=== PATIENT | male | born 1965 | race Caucasian/White ===

== ENCOUNTER 2022-01-23 17:45 | Observation (INO) | payer OTHER, SELFPAY ==
[2022-01-23] VITALS (15 sets, daily range): BP systolic 167–199; BP diastolic 97–136; PULSE 113–137; RESP 15–28; TEMP 36.8–38; O2SAT 92–99; BMI 32.5; BMI 35.0
--- NOTE | 2022-01-23 18:18 | CRLHL7_ITS ---
For Patients: As a result of the 21st Century Cures Act, medical imaging exams and procedure reports are released immediately into your electronic medical record. You may view this report before your referring provider. If you have questions, please contact your health care provider. HISTORY: Shortness of breath. Recent COVID-19. TECHNIQUE: Intravenous contrast enhanced CT of the chest, abdomen and pelvis. 95 mL of Isovue-370 intravenous contrast administered. COMPARISON: CT abdomen pelvis from 10/25/2020. FINDINGS: Chest: There is less than optimal opacification of the pulmonary arterial circulation which limits assessment for pulmonary embolism. Segmental and subsegmental pulmonary arterial branches of the lower lobes are difficult to evaluate as a result. There is no moderate or large pulmonary embolism. No thoracic aortic aneurysm or dissection. Coronary calcifications are present. No significant pericardial effusion. No technically enlarged mediastinal or hilar lymph nodes. No enlarged axillary lymph nodes. - No change in elevation of right hemidiaphragm with associated atelectasis at the right lung base. There is no acute lung infiltrate. No pleural effusion or pneumothorax. - Degenerative changes of the thoracic spine. No acute thoracic fracture. Abdomen and pelvis: There is diffuse fatty infiltration of the liver. No focal liver lesion. No biliary ductal dilatation. Gallbladder mildly distended. The spleen size is within normal limits. The adrenal glands normal. There are peripancreatic inflammatory changes associated with the pancreatic head likely indicating pancreatitis changes. This may be correlated with pancreatic enzymes. There is no pseudocyst or definite pancreatic necrosis. The peripancreatic vasculature remains patent. Symmetric nephrograms. There is a cyst exophytic off the anterior aspect of left kidney. No hydronephrosis. No obstructive urinary calculus. Prostate is mildly enlarged. - No small bowel obstruction. No appendicitis. Colonic diverticulosis without diverticulitis. - No abdominal aortic aneurysm. - Degenerative changes of the hips and sacroiliac joints. Degenerative changes within the lumbar spine. No acute fractures. IMPRESSION: 1. Assessment for pulmonary embolism limited by non-optimal opacification of the pulmonary arterial circulation. No moderate or large pulmonary embolism. 2. Chronically elevated right hemidiaphragm with right basilar atelectasis. 3. No acute lung infiltrate. 4. Peripancreatic inflammatory changes associated with the head of the pancreas likely reflecting pancreatitis changes. This may be correlated with pancreatic enzymes. No pseudocyst or pancreatic necrosis. 5. Fatty infiltration of the liver. Dictated by Jorge A Em MD @ 01/23/2022 7:42:41 PM Please note that all CT scans at this facility use dose modulation, iterative reconstruction, and/or weight-based dosing when appropriate to reduce radiation dose to as low as reasonably achievable. Dictated by: Jorge A Em MD @ 01/23/2022 19:42:47 (Electronically Signed)
--- NOTE | 2022-01-23 18:20 | ED_ITS ---
HPI - General Adult General Time Seen by Provider: 18:20 Date Seen: 01/23/22 Chief complaint: Abdominal Pain Stated complaint: Blood pressure, heart rate up, short of breath Time Seen by Provider: 01/23/22 17:53 Source: patient, RN notes reviewed and old records reviewed Mode of arrival: ambulatory Limitations: no limitations History of Present Illness HPI narrative: 48-year-old male with history of high blood pressure, had COVID about 2 weeks ago, comes in today with fast heart rate, shortness of breath, upper abdominal pain. Symptoms have been going on for about 2 days. He has not been eating or drinking for the last couple of days because of his nausea. Abdominal pain is constant, worse with moving, does not radiate into the chest or back. No dysuria or hematuria. Soft stools but no frequency or diarrhea. No blood in the stools. Denies fevers, has had fatigue. Some body aches. No chills. Has not been taking anything for his symptoms. No prior surgeries. Does admit to some shortness of breath but no chest pain and no pain with breathing. Slight cough. Related Data Home Medications Medication Instructions Recorded Confirmed chlorthalidone 25 mg tablet mg 01/23/22 losartan 100 mg tablet mg 01/23/22 tamsulosin 0.4 mg capsule mg PO 01/23/22 Previous Rx's Medication Instructions Recorded alprazolam 0.5 mg tablet 0.5 mg PO BID PRN anxiety #42 tabs 12/12/21 Allergies Allergy/AdvReac Type Severity Reaction Status Date / Time No Known Drug Allergies Allergy Verified 01/23/22 18:12 Review of Systems Status of ROS: Reports: 10 or more systems reviewed and unremarkable except as noted in History and below [facility] Medical History (Updated 01/23/22 @ 19:03 by Delvis Corrales MD) Anxiety Social History Smoking Status: Former smoker Do you use any of these nicotine containing products: None Second hand tobacco smoke exposure: No How often do you have a drink containing alcohol: 2-3 times a week How many standard drinks containing alcohol do you have on a typical day: 7 to 9 How often do you have six or more drinks on one occasion: Weekly AUDIT-C Alcohol total score: 9 Non-prescribed substance use: denies use Exam Narrative: Exam Narrative: General: Well-developed and well-nourished, no acute distress Head: Atraumatic and normocephalic Eyes: Pupils are equal reactive, extraocular motions intact, conjunctiva clear ENT: External nose and ears are normal, posterior pharynx without erythema or exudate Neck: No midline cervical tenderness, full spontaneous range of motion the neck, trachea midline, no adenopathy Heart: Tachycardic but regular no murmurs or thrills Lungs: Clear to auscultation bilaterally without wheezes or crackles Abdomen: Soft, mild upper and left-sided tenderness, nondistended with active bowel sounds Musculoskeletal: No tenderness, deformity, or edema Neurologic: Awake, alert, and oriented x3, no gross focal neurologic deficits, cranial nerves intact as tested Psych: Mood and affect are appropriate Skin: No rashes Const: Vital Signs, click to edit/add: Vital Signs - 24 hr 01/23/22 18:09 01/23/22 18:51 01/23/22 18:05 Temperature 99.9 F H 100.4 F H Pulse Rate [Right Pulse Oximeter] 128 H 129 H Respiratory Rate 26 H 22 Blood Pressure [Ri ght Upper Arm] 174/121 H 174/121 H Pulse Oximetry 94 94 Oxygen Delivery Me thod Room Air Room Air 01/23/22 18:30 01/23/22 19:00 01/23/22 19:40 Temperature Pulse Rate [Right Pulse Oximeter] 128 H 128 H 137 H Respiratory Rate 27 H 18 23 Blood Pressure [Ri ght Upper Arm] 199/126 H 190/136 H 180/129 H Pulse Oximetry 95 95 95 Oxygen Delivery Me thod Room Air Room Air Room Air Course Course Hospital Course: Patient seen and examined, prior records are reviewed. Differential diagnosis includes but not limited to pneumonia, pulmonary embolism, dysrhythmia, electrolyte disturbance, cholecystitis, hepatitis, colitis, diverticulitis, deh ydration, acute coronary syndrome. Patient with fast heart rate and upper abdominal discomfort for the last couple of days along with fatigue, poor oral intake. Recent COVID. On exam here, patient is tachycardic, no fever but temperature is little bit elevated, oxygen saturation 94% on room air. Mild upper abdominal tenderness. Given broad differential and abnormal vital signs, labs and CT scan of the chest for pulmonary embolism or pneumonia, as well as CT scan of the abdomen for intra-abdominal infection or pathology ordered. Acute coronary syndrome less likely but EKG and troponin are ordered. IV fluids are initiated along with Zofran and Tylenol. Reevaluation(s) Reevaluation #1: Labs demonstrate normal white blood cell count, slightly elevated lactate which likely secondary to dehydration. Additionally, AST nail tear slightly elevated but bilirubin is normal. Lipase is significantly elevated. CT scan of the chest personally reviewed and interpreted by me does not demonstrate any acute intrathoracic findings, CT scan of the abdomen and pelvis appears to demonstrate findings consistent with acute pancreatitis. Troponin is negative, urinalysis is pending. Plan to admit patient for further evaluation treatment. Time: 19:01 Reevaluation #2: Radiology interpretation agrees with my initial interpretation of acute pancreatitis. Care was discussed with Dr. Colón, hospitalist for admission. Time: 20:01 Vital Signs Vital signs: Initial Vital Signs Pulse Rate 129 H 01/23/22 18:05 Respiratory Rate 22 01/23/22 18:05 Blood Pressure 174/121 H 01/23/22 18:05 Blood Pressure Mean 138 01/23/22 18:05 Pulse Oximetry 94 01/23/22 18:05 Oxygen Delivery Method 01/23/22 18:05 Vital Signs Pulse Rate 129 H 01/23/22 18:05 Respiratory Rate 22 01/23/22 18:05 Blood Pressure 174/121 H 01/23/22 18:05 Pulse Oximetry 94 01/23/22 18:05 Oxygen Delivery Method 01/23/22 18:05 Temperature 100.4 F H 01/23/22 18:51 Pulse Rate 137 H 01/23/22 19:40 Respiratory Rate 23 01/23/22 19:40 Blood Pressure 180/129 H 01/23/22 19:40 Pulse Oximetry 95 01/23/22 19:40 Oxygen Delivery Method 01/23/22 19:40 Medical Decision Making Medical Records Medical records reviewed: Yes I reviewed the patient's medical records Lab Data Lab results reviewed: Yes I reviewed the patient's lab results Labs: Lab Results 01/23/22 01/23/22 01/23/22 Range/Units 18:15 18:15 18:15 WBC 9.34 (4.50-11.00) K/uL RBC 4.89 (4.30-5.90) m/uL Hgb 16.3 (13.5-17.5) gm/dL Hct 47.0 (37.0-53.0) % MCV 96 (80-100) fL MCH 33 (26-34) pg MCHC 35 (32-36) gm/dL RDW Coeff of Bhupendra 13.1 (11.5-15.5) % Plt Count 190 (140-440) K/uL Neut % (Auto) 72.6 H (42.0-72.0) % Lymph % (Auto) 11.6 L (20-44) % Putnam % (Auto) 14.5 H (0.0-11.0) % Eos % (Auto) 0.9 (0.0-7.0) % Baso % (Auto) 0.3 (0.0-3.0) % Neut # (Auto) 6.80 (1.7-7.0) K/uL Lymph # (Auto) 1.10 (0.90-2.90) K/uL Putnam # (Auto) 1.40 H (0.00-0.90) K/UL Eos # (Auto) 0.08 (0.00-0.50) K/uL Baso # (Auto) 0.03 (0.00-0.30) K/uL Abs Immat Gran (auto) 0.01 (0.00-0.30) K/uL Sodium 137 (135-149) mmol/L Potassium 3.7 (3.6-5.1) mmol/L Chloride 98 (96-114) mmol/L Carbon Dioxide 25 (20-32) mmol/L BUN 8 (7-30) mg/dL Creatinine 0.8 (0.5-1.5) mg/dL Estimated Creat Clear 110.47 Estimated GFR 103 ml/min Glucose 166 H (60-115) mg/dL Lactate 2.0 H (0.5-1.9) mmol/L Calcium 9.6 (8.4-10.6) mg/dL Total Bilirubin (0.1-1.5) mg/dL Direct Bilirubin (0.0-0.5) mg/dL AST (12-35) U/L ALT (4-50) U/L Alkaline Phosphatase (40-150) U/L NT-Pro-B Natriuret Pep (0-125) PG/mL Total Protein (6.0-8.3) g/dL Albumin (3.3-5.0) g/dL Lipase (23-300) U/L Urine Color (Yellow) Urine Appearance (Clear) Urine pH (5.0-8.5) Ur Specific Edgerton (1.000-1.030) Urine Protein (Negative) Urine Glucose (UA) (Negative) Urine Ketones (Negative) Urine Blood (Negative) Urine Nitrite (Negative) Urine Bilirubin (Negative) Urine Urobilinogen (0.2-1.0) Ur Leukocyte Esterase (Negative) SARS-CoV-2 Ag (Rapid) (Negative) POC Troponin I (0.01-0.04) ng/ml 01/23/22 01/23/22 01/23/22 Range/Units 18:15 18:15 18:24 WBC (4.50-11.00) K/uL RBC (4.30-5.90) m/uL Hgb (13.5-17.5) gm/dL Hct (37.0-53.0) % MCV (80-100) fL MCH (26-34) pg MCHC (32-36) gm/dL RDW Coeff of Bhupendra (11.5-15.5) % Plt Count (140-440) K/uL Neut % (Auto) (42.0-72.0) % Lymph % (Auto) (20-44) % Putnam % (Auto) (0.0-11.0) % Eos % (Auto) (0.0-7.0) % Baso % (Auto) (0.0-3.0) % Neut # (Auto) (1.7-7.0) K/uL Lymph # (Auto) (0.90-2.90) K/uL Putnam # (Auto) (0.00-0.90) K/UL Eos # (Auto) (0.00-0.50) K/uL Baso # (Auto) (0.00-0.30) K/uL Abs Immat Gran (auto) (0.00-0.30) K/uL Sodium (135-149) mmol/L Potassium (3.6-5.1) mmol/L Chloride (96-114) mmol/L Carbon Dioxide (20-32) mmol/L BUN (7-30) mg/dL Creatinine (0.5-1.5) mg/dL Estimated Creat Clear Estimated GFR ml/min Glucose (60-115) mg/dL Lactate (0.5-1.9) mmol/L Calcium (8.4-10.6) mg/dL Total Bilirubin 1.3 (0.1-1.5) mg/dL Direct Bilirubin 0.4 (0.0-0.5) mg/dL AST 121 H (12-35) U/L ALT 165 H (4-50) U/L Alkaline Phosphatase 89 (40-150) U/L NT-Pro-B Natriuret Pep 55 (0-125) PG/mL Total Protein 8.8 H (6.0-8.3) g/dL Albumin 4.5 (3.3-5.0) g/dL Lipase 1109 H (23-300) U/L Urine Color (Yellow) Urine Appearance (Clear) Urine pH (5.0-8.5) Ur Specific Edg[place] (1.000-1.030) Urine Protein (Negative) Urine Glucose (UA) (Negative) Urine Ketones (Negative) Urine Blood (Negative) Urine Nitrite (Negative) Urine Bilirubin (Negative) Urine Urobilinogen (0.2-1.0) Ur Leukocyte Esterase (Negative) SARS-CoV-2 Ag (Rapid) negative (Negative) POC Troponin I 0.01 (0.01-0.04) ng/ml 01/23/22 Range/Units 19:46 WBC (4.50-11.00) K/uL RBC (4.30-5.90) m/uL Hgb (13.5-17.5) gm/dL Hct (37.0-53.0) % MCV (80-100) fL MCH (26-34) pg MCHC (32-36) gm/dL RDW Coeff of Bhuepndra (11.5-15.5) % Plt Count (140-440) K/uL Neut % (Auto) (42.0-72.0) % Lymph % (Auto) (20-44) % Putnam % (Auto) (0.0-11.0) % Eos % (Auto) (0.0-7.0) % Baso % (Auto) (0.0-3.0) % Neut # (Auto) (1.7-7.0) K/uL Lymph # (Auto) (0.90-2.90) K/uL Putnam # (Auto) (0.00-0.90) K/UL Eos # (Auto) (0.00-0.50) K/uL Baso # (Auto) (0.00-0.30) K/uL Abs Immat Gran (auto) (0.00-0.30) K/uL Sodium (135-149) mmol/L Potassium (3.6-5.1) mmol/L Chloride (96-114) mmol/L Carbon Dioxide (20-32) mmol/L BUN (7-30) mg/dL Creatinine (0.5-1.5) mg/dL Estimated Creat Clear Estimated GFR ml/min Glucose (60-115) mg/dL Lactate (0.5-1.9) mmol/L Calcium (8.4-10.6) mg/dL Total Bilirubin (0.1-1.5) mg/dL Direct Bilirubin (0.0-0.5) mg/dL AST (12-35) U/L ALT (4-50) U/L Alkaline Phosphatase (40-150) U/L NT-Pro-B Natriuret Pep (0-125) PG/mL Total Protein (6.0-8.3) g/dL Albumin (3.3-5.0) g/dL Lipase (23-300) U/L Urine Color Yellow (Yellow) Urine Appearance Clear (Clear) Urine pH 8.5 (5.0-8.5) Ur Specific Edgerton 1.015 (1.000-1.030) Urine Protein Negative (Negative) Urine Glucose (UA) Negative (Negative) Urine Ketones Negative (Negative) Urine Blood Negative (Negative) Urine Nitrite Negative (Negative) Urine Bilirubin Negative (Negative) Urine Urobilinogen 0.2 (0.2-1.0) Ur Leukocyte Esterase Negative (Negative) SARS-CoV-2 Ag (Rapid) (Negative) POC Troponin I (0.01-0.04) ng/ml Imaging Data CT Chest/Ab/Pelvis: Attestation: I have reviewed the pertinent imaging results. My impression: CT scan of the chest is negative, CT scan of the abdomen consistent with acute appendicitis, no other acute findings Radiologist's impression: IMPRESSION: 1. Assessment for pulmonary embolism limited by non-optimal opacification of the pulmonary arterial circulation. No moderate or large pulmonary embolism. 2. Chronically elevated right hemidiaphragm with right basilar atelectasis. 3. No acute lung infiltrate. 4. Peripancreatic inflammatory changes associated with the head of the pancreas likely reflecting pancreatitis changes. This may be correlated with pancreatic enzymes. No pseudocyst or pancreatic necrosis. 5. Fatty infiltration of the liver. ECG Data Attestation: I personally reviewed and interpreted this ECG as follows: Prior ECG tracings: not available for review Interpretation: Performed at 6:01 p.m. demonstrates sinus tachycardia rate 130, no acute ST elevations or depressions, normal intervals, normal axis, QTC 467, IN 140. No prior for comparison. Discharge Plan Discharge Clinical Impression: Pancreatitis Patient Disposition: Admitted As Inpatient
[2022-01-23 18:27] LABS: Troponin, Point-of-Care* 0.01 ng/ml (0.01-0.04)
--- OUTSIDE RECORDS SUMMARY | 2022-01-23 18:27 | XMS_ITS ---
:1965 Author Care Team Providers Name Role Phone Ciro Pitts Primary Care Provider Unavailable Allergies Code Code System Name Reaction Severity Status Onset NKDA ? Medications Name Status Start Date Stop Date ? ? azithromycin 250 mg tablet Completed ? 11/01 ibuprofen 800 mg tablet Active ? Not avai lable TAKE 1 TABLET BY MOUTH TWICE DAILY NEEDED FOR PAIN losartan 100 mg tablet Active ? Not avail able oxycodone 5 mg tablet Completed ? 11/25/2020 TAKE 1 TABLET BY MOUTH EVERY 4 TO 6 HOURS NEEDED oxycodone-acetaminophen 5 mg-325 mg tablet Completed ? 11/01/2020 tamsulosin 0.4 mg capsule Active ? Not av ailable tobramycin 0.3 %-dexamethasone 0.1 % eye drops,suspension Comple philomena ? 11/25/2020 SHAKE LIQUID AND INSTILL 1 DROP IN LEFT EYE FOUR TIMES DAILY FO R 1 WEEK Problems None recorded. Procedures Date Name Performed by ? 11/25/2020 XR, Kidney + Ureter + Bladder Informatio n not available Results Lab Results Date Name Specimen Result Interpretation Description Value Range Status Address ? 11/01/2020 Urinalysis, Dipstick ? No observation recor ded. ? Urinalysis, Dipstick ? Color-Status Yellow ? Clarity-Status Clear ? pH-Status 6.0 ? Blood-Status Small ? ? Past Encounters 11/25/2020 Kidney Stone Ciro Pitts MD: [id number], [address], [place] [address], Ph. 11/01/2020 Kidney Stone Ciro Pitts MD: [address] [place] [address], Ph. Social History Tobacco Smoking Status Former Smoker Vaccine List None recorded. Plan of Care Reminders Provider Appointments None recorded. ? ? Lab None recorded. ? ? Referral None recorded. ? ? Procedures None recorded. ? ? Surgeries None recorded. ? ? Imaging None recorded. ? ? Vitals 11/25/2020 10:20AM ESTABLISHED 10 Height Weight BMI 6 ft 230 lbs 31.2 kg/m2 11/01/2020 03:40PM NEW PATIENT 20 Height Weight BMI 6 ft 230 lbs 31.2 kg/m2
--- OUTSIDE RECORDS SUMMARY | 2022-01-23 18:27 | XMS_ITS | Clinical Summary ---
:1965 Author Organization [facility] Address [place] [address] Care Team Providers Name Role Phone Ketty Reddy MD Primary Care Provider [phone] Allergies No known active allergies Medications Medication Sig Dispensed Refills Start Date End Date Status traMADol (ULTRAM) 50 Take 50 mg by 0 Active mg tablet mouth every 6 hours if needed for Pain. tamsulosin (FLOMAX) Take 0.4 mg by 0 Active 0.4 mg capsule mouth once daily after a meal. ibuprofen (ADVIL; Take 800 mg by 0 Active MOTRIN) 800 mg tablet mouth 2 times daily if needed. 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 OPERATOR Pulse 60 06/07/2014 9:39 AM VIBRATING SCREED OPERATOR Temperature 36.6 ??C (97.8 ??F) 11/28/2016 11:00 AM CDT Respiratory Rate 16 06/07/2014 9:39 AM VIBRATING SCREED OPERATOR Oxygen Saturation 98% 06/07/2014 9:39 AM VIBRATING SCREED OPERATOR Inhaled Oxygen Concentration - - Weight 103.3 kg (227 lb 12.8 oz) 11/28/2016 11:00 AM CDT Height 182.9 cm (6') 06/07/2014 7:55 AM VIBRATING SCREED OPERATOR Body Mass Index 30.9 06/07/2014 7:55 AM VIBRATING SCREED OPERATOR Plan of Treatment Health Maintenance Due Date Last Done Comments COVID-19 vaccine series (#1) 01/07/1964 Tdap 07/06/1974 Depression screening for age 12+ 1975 BMI (ht and wt on same day) for age 18+ 07/06/1981 Hepatitis C screening for age 18-79 07/06/1981 Tetanus booster 1983 Colonoscopy through age 75 07/06/2008 Lipids for age 45-75 07/06/2008 Zoster (shingles) series for age 50+ (1 of 2) 07/06/2013 Influenza for age 50-64 01/04/2022 Results Not on filefrom Last 3 Months Insurance Payer Benefit Plan / Subscriber ID Effective Dates Phone Addre ss Type Group WC [employer] [id number] 2016-Presen [employer] [address] [place] [address] MEDICA MEDICA CHOICE [id number] 2020-Present [address] [address] [place] [address] Advance Directives Latest Code Status on File Code Status Date Activated Date Inactivated Comments Full Code 06/07/2014 7:34 AM 06/07/2014 11:43 AM Care Teams Bookstore Manager Relationship Specialty Start Date End Date Ketty Reddy, PCP - General Family Practice 06/07
[2022-01-23 18:29] LABS: Basophils Absolute Auto 0.03 K/uL (0.00-0.30); Basophils Percent Auto 0.3 % (0.0-3.0); Eosinophils Absolute Auto 0.08 K/uL (0.00-0.50); Eosinophils Percent Auto 0.9 % (0.0-7.0); Hemoglobin* 16.3 gm/dL (13.5-17.5); Immature Granulocytes Abs Auto 0.01 K/uL (0.00-0.30); Lymphocytes Percent Auto 11.6 % (20-44); Mean Corpuscular HGB Conc 35 gm/dL (32-36); Mean Corpuscular Hemoglobin 33 pg (26-34); Mean Corpuscular Volume 96 fL (80-100); Monocytes Percent Auto 14.5 % (0.0-11.0); Neutrophils Percent Auto 72.6 % (42.0-72.0); Platelet Count* 190 K/uL (140-440); RDW Coefficient of Variation % 13.1 % (11.5-15.5); Red Blood Count 4.89 m/uL (4.30-5.90); White Blood Count* 9.34 K/uL (4.50-11.00)
[2022-01-23 18:31] LABS: Slide Review Reflex No
[2022-01-23 18:41] LABS: Chloride* 98 mmol/L (96-114); Potassium* 3.7 mmol/L (3.6-5.1); Sodium* 137 mmol/L (135-149)
[2022-01-23 18:43] LABS: Albumin* 4.5 g/dL (3.3-5.0)
[2022-01-23 18:44] LABS: Blood Urea Nitrogen* 8 mg/dL (7-30); Carbon Dioxide* 25 mmol/L (20-32); Creatinine* 0.8 mg/dL (0.5-1.5); Est. Creatinine Clearance* 110.47; Estimated Glomerular Filt Rate 103 ml/min
[2022-01-23 18:45] LABS: Calcium* 9.6 mg/dL (8.4-10.6); Glucose* 166 mg/dL (60-115)
[2022-01-23 18:46] LABS: Alanine Aminotransferase* 165 U/L (4-50); Alkaline Phosphatase* 89 U/L (40-150); Aspartate Amino Transferase* 121 U/L (12-35); Bilirubin Direct* 0.4 mg/dL (0.0-0.5); Bilirubin Total* 1.3 mg/dL (0.1-1.5); Lipase* 1109 U/L (23-300); Total Protein* 8.8 g/dL (6.0-8.3)
[2022-01-23] MEDS: ACETAMINOPHEN 500 MG TABLET 1000 MG PO (18:51)
[2022-01-23] MEDS: ONDANSETRON 2 MG/ML inj 4 MG IVP ×3 (18:52→22:59)
[2022-01-23] MEDS: 0.9 % SODIUM CHLORIDE 1000 ml 1,000 ML IV ×2 (18:52→20:10)
[2022-01-23 19:01] LABS: SARS Antigen* negative (Negative)
[2022-01-23 19:53] LABS: NT Pro B Type NatriureticPept* 55 PG/mL (0-125)
[2022-01-23 19:56] LABS: Appearance Urine Clear (Clear); Bilirubin Urine Negative (Negative); Blood Urine Negative (Negative); Color Urine Yellow (Yellow); Glucose Urine Negative (Negative); Ketones Urine Negative (Negative); Leukocyte Esterase Urine Negative (Negative); Nitrite Urine Negative (Negative); Protein Urine Negative (Negative); Specific Gravity Urine 1.015 (1.000-1.030); Urobilinogen Urine 0.2 (0.2-1.0); pH Urine 8.5 (5.0-8.5)
[2022-01-23 20:06] LABS: RBC Urine 0-2 (0-2); WBC Urine 0-2 (0-5)
[2022-01-23] MEDS: HYDROmorphone 0.5 mg/0.5 ml inj IVP (20:10)
--- NOTE | 2022-01-23 22:08 | P.IMHP_ITS ---
Hospitalist- H&P: HPI History of Present Illness Date Seen: 01/23/22 Chief complaint: Blood pressure, heart rate up, short of breath Narrative: Dov Alexander is a 56 year old male who has not felt well for the past 2 days. He has felt like his heart has been racing and he has been having increasing diffuse abd pain. Pt has really not been eating. He has no history of gallbladder disease and drinks approximately a 6 pack of beer every week or two. None really recently. No history of pancreatitis previously but laboratory studies show a Lipase of 1109 with a lactate of 2.0. Hgb of 16.3, WBC of 9.34. ALT is 121 ALT of 165. Total Bilirubin of 1.3. Pts CT of abd and pelvis showed evidence of Pancreatitis without pseudocyst as well as fatty liver. Pt had COVID 2 weeks ago but tests negative for COVID 19 now. Troponin is negative. Pt given hydration and pain control and is subsequently admitted. Review of Systems Status of ROS: Reports: 10 or more systems reviewed and unremarkable except as noted in History and below PFSH [facility] Medical History Anxiety BPH (benign prostatic hyperplasia) COVID-19 Hypertension Kidney stones Social History Smoking Status: Former smoker Do you use any of these nicotine containing products: None Second hand tobacco smoke exposure: No How often do you have a drink containing alcohol: 2-3 times a week How many standard drinks containing alcohol do you have on a typical day: 7 to 9 How often do you have six or more drinks on one occasion: Weekly AUDIT-C Alcohol total score: 9 Non-prescribed substance use: denies use Meds Home Medications and Allergies Home Medications Medication Instructions Recorded Confirmed Type chlorthalidone 25 mg tablet mg 01/23/22 History losartan 100 mg tablet mg 01/23/22 History tamsulosin 0.4 mg capsule mg PO 01/23/22 History Allergies Allergy/AdvReac Type Severity Reaction Status Date / Time No Known Drug Allergies Allergy Verified 01/23/22 18:12 Exam Narrative: Exam Narrative: EXAM GENERAL: Patient appears mildly uncomfortable EYES: No scleral icterus. THYROID: no thyroid nodules or thyromegaly. LYMPH: No supraclavicular or cervical lymphadenopathy. SKIN: Visible skin seen during exam normal or with benign process only. EXT: No dependent lower extremity pedal edema. HEART: Regular rate and rhythm with no murmurs, rubs, or gallops. LUNGS: Clear to auscultation bilaterally with no crackles or wheezes. ABD: Hypoactive bowel sounds mildly tender to palpation no obvious fluid wave. PSYCH: Good eye contact, speech is not pressured. Neurologic cranial nerves 2-12 grossly intact no focal defects. Const: Vital Signs, click to edit/add: Vital Signs - 24 hr 01/23/22 18:09 01/23/22 18:51 01/23/22 18:05 Temperature 99.9 F H 100.4 F H Pulse Rate [Right Pulse Oximeter] 128 H 129 H Respiratory Rate 26 H 22 Blood Pressure [Ri ght Upper Arm] 174/121 H 174/121 H Pulse Oximetry 94 94 Oxygen Delivery Mn thod Room Air Room Air 01/23/22 18:30 01/23/22 19:00 01/23/22 19:40 Temperature Pulse Rate [Right Pulse Oximeter] 128 H 128 H 137 H Respiratory Rate 27 H 18 23 Blood Pressure [Ri ght Upper Arm] 199/126 H 190/136 H 180/129 H Pulse Oximetry 95 95 95 Oxygen Delivery Mn thod Room Air Room Air Room Air 01/23/22 20:00 01/23/22 20:43 01/23/22 21:00 Temperature 100.1 F H Pulse Rate [Right Pulse Oximeter] 131 H 116 H Respiratory Rate 15 24 Blood Pressure [Ri ght Upper Arm] 181/121 H 172/97 H Pulse Oximetry 96 94 Oxygen Delivery Mn thod Room Air Room Air 01/23/22 20:30 Temperature Pulse Rate [Right Pulse Oximeter] 115 H Respiratory Rate 28 H Blood Pressure [Ri ght Upper Arm] 181/119 H Pulse Oximetry 92 Oxygen Delivery Mn thod Room Air Hospitalist - H&P: Result Labs Labs: Short CBC 01/23/22 Range/Units 18:15 WBC 9.34 (4.50-11.00) K/uL Hgb 16.3 (13.5-17.5) gm/dL Hct 47.0 (37.0-53.0) % Plt Count 190 (140-440) K/uL BMP 01/23/22 18:15 Sodium 137 Potassium 3.7 Chloride 98 Carbon Dioxide 25 BUN 8 Creatinine 0.8 Glucose 166 H Calcium 9.6 Liver Function 01/23/22 Range/Units 18:15 Total Bilirubin 1.3 (0.1-1.5) mg/dL Direct Bilirubin 0.4 (0.0-0.5) mg/dL AST 121 H (12-35) U/L ALT 165 H (4-50) U/L Alkaline Phosphatase 89 (40-150) U/L Albumin 4.5 (3.3-5.0) g/dL Urine 01/23/22 Range/Units 19:46 Urine Color Yellow (Yellow) Urine Appearance Clear (Clear) Urine pH 8.5 (5.0-8.5) Ur Specific [place] 1.015 (1.000-1.030) Urine Protein Negative (Negative) Urine Glucose (UA) Negative (Negative) Assessment and Plan Assessment and plan (1) Pancreatitis: Status: Acute Assessment and Plan: Bowel rest. IV hydration, pain and nausea control. Repeat labs and a ultrasound of the gall bladder in the am. (2) Hypertension: Status: Chronic Assessment and Plan: Will continue outpt chlorthalidone and losartan (3) BPH (benign prostatic hyperplasia): Status: Chronic Assessment and Plan: Will continue Flomax Plan Pt wishes to be a DNR
[2022-01-23] MEDS: 0.9 % SODIUM CH + KCL 20 mEq/L 1,000 ML 125 ML IV (22:49)
[2022-01-23] MEDS: MORPHINE 4 MG/ML INJ IVP (22:49)
[2022-01-24] VITALS (8 sets, daily range): BP systolic 173–201; BP diastolic 117–128; PULSE 84–101; RESP 20; TEMP 36.9–37.1; O2SAT 92–99
[2022-01-24] MEDS: MORPHINE 4 MG/ML INJ IVP ×10 (00:15→19:01)
[2022-01-24] MEDS: ONDANSETRON 2 MG/ML inj 4 MG IVP (04:30)
--- NOTE | 2022-01-24 05:07 | PC.NURSE ---
[id number]: patient up ad zain, NPO overnight, pain and nausea meds per EMAR.
[2022-01-24 06:21] LABS: Lactate* 1.1 mmol/L (0.5-1.9)
[2022-01-24 06:31] LABS: Basophils Absolute Auto 0.03 K/uL (0.00-0.30); Basophils Percent Auto 0.3 % (0.0-3.0); Eosinophils Absolute Auto 0.17 K/uL (0.00-0.50); Eosinophils Percent Auto 1.8 % (0.0-7.0); Hematocrit 44.3 % (37.0-53.0); Immature Granulocytes Abs Auto 0.02 K/uL (0.00-0.30); Lymphocytes Percent Auto 11.5 % (20-44); Mean Corpuscular HGB Conc 34 gm/dL (32-36); Mean Corpuscular Hemoglobin 34 pg (26-34); Mean Corpuscular Volume 99 fL (80-100); Monocytes Percent Auto 15.7 % (0.0-11.0); Neutrophils Absolute Auto 6.62 K/uL (1.7-7.0); Neutrophils Percent Auto 70.5 % (42.0-72.0); Platelet Count* 177 K/uL (140-440); RDW Coefficient of Variation % 13.5 % (11.5-15.5); Red Blood Count 4.46 m/uL (4.30-5.90); White Blood Count* 9.39 K/uL (4.50-11.00)
[2022-01-24] MEDS: 0.9 % SODIUM CH + KCL 20 mEq/L 1,000 ML 125 ML IV ×3 (06:35→22:19)
[2022-01-24 06:39] LABS: Slide Review Reflex No
[2022-01-24 06:42] LABS: Albumin* 4.2 g/dL (3.3-5.0); Chloride* 100 mmol/L (96-114); Sodium* 139 mmol/L (135-149)
[2022-01-24 06:45] LABS: Alanine Aminotransferase* 134 U/L (4-50); Alkaline Phosphatase* 69 U/L (40-150); Aspartate Amino Transferase* 89 U/L (12-35); Bilirubin Total* 1.5 mg/dL (0.1-1.5); Blood Urea Nitrogen* 10 mg/dL (7-30); Carbon Dioxide* 27 mmol/L (20-32); Creatinine* 0.8 mg/dL (0.5-1.5); Est. Creatinine Clearance* 110.47; Estimated Glomerular Filt Rate 103 ml/min; Glucose* 165 mg/dL (60-115); Lipase* 545 U/L (23-300); Total Protein* 8.3 g/dL (6.0-8.3)
[2022-01-24 06:46] LABS: Calcium* 8.9 mg/dL (8.4-10.6)
[2022-01-24] MEDS: LOSARTAN POTASSIUM 50 MG TABLET 100 MG PO (09:18)
[2022-01-24] MEDS: TAMSULOSIN HCL 0.4 MG CAPSULE PO (09:19)
[2022-01-24] MEDS: METOPROLOL TARTRATE 25 MG TABLET PO ×2 (09:19→22:19)
[2022-01-24] MEDS: CHLORTHALIDONE 25 MG TABLET PO (09:19)
--- NOTE | 2022-01-24 10:15 | CRLHL7_ITS ---
For Patients: As a result of the Century Cures Act, medical imaging exams and procedure reports are released immediately into your electronic medical record. You may view this report before your referring provider. If you have questions, please contact your health care provider. Indication: Pancreatitis. Technique: Sonography of the abdomen was performed limited to the structures discussed below. Comparison: Limited portions of a CT dated October 25, 2020 Findings: The gallbladder wall thickness is normal at 2.7 millimeters. There is sludge within the gallbladder. No stones. No pericholecystic fluid. No sonographic Valentine`s sign. The common duct measures 6.4 millimeters which is normal. The liver is hyperechoic probably related to fatty infiltration. No focal mass or biliary ductal dilatation. The pancreas is obscured by bowel gas. The right kidney appears normal. The aorta and the IVC as visualized appear normal. Impression: Gallbladder sludge but no calculus and no indication of acute cholecystitis or common duct obstruction. Fatty infiltrated liver. The pancreas was not well seen due to bowel gas. Dictated by Wiliam Rutherford MD @ 01/24/2022 11:42:13 AM (Electronically Signed)
[2022-01-24] MEDS: GABAPENTIN 300 MG CAPSULE PO ×2 (10:22→22:20)
[2022-01-24] MEDS: SODIUM CHLORIDE 0.9 % (FLUSH) 10 ML SYRINGE IVF ×2 (11:50→13:26)
--- NOTE | 2022-01-24 12:02 | PM.IMPN1 ---
Progress Note: A&P Assessment and plan (1) Epigastric abdominal pain: Status: Acute Assessment and Plan: 1. This is related to the acute pancreatitis. (2) Pancreatitis, alcoholic, acute: Status: Acute Assessment and Plan: 1. This is most certainly related to his alcohol ingestion. No obvious gallstones at this time or cholecystitis. 2. Continue with IV fluids for now. 3. Will increase diet as tolerated. (3) Sludge in gallbladder: Problem details: No gallstones per ultrasound 01/24/2022 Status: Acute (4) Alcohol induced fatty liver: Status: Acute Assessment and Plan: 1. Most likely related to alcohol use. Certainly another element of this pathology could be his being overweight, although his BMI is only 35. (5) Obesity (BMI 35.0-39.9 without comorbidity): Status: Acute (6) Alcohol abuse with alcohol-induced disorder: Status: Acute Assessment and Plan: 1. Reviewed my impression with him in this regard. 2. Patient indicates simply that he will never drink again. 3. Will empirically add gabapentin 300 mg orally twice daily for alcohol withdrawal prevention prophylaxis, plus at obviously as an element of pain management as well. (7) Kidney stones: Status: Acute (8) BPH (benign prostatic hyperplasia): Status: Chronic (9) Hypertension: Status: Chronic Assessment and Plan: 1. I will add a low-dose beta-chaya to his current antihypertensive regimen at this time. (10) Anxiety: Status: Acute Plan 1. Reviewed my impressions and recommendations with the patient. 2. Answered patient's questions to satisfaction. 3. Patient has asked us to proceed as indicated. 4. Continue monitor labs periodically. Time Spent With Patient Total time spent: 40 minutes Subjective Time Seen by Provider: 08:45 Date Seen: 01/24/22 Interval history: Hospital day 2. Abdominal pain is slightly improved. Denies nausea or vomiting. Last bowel movement was yesterday. No blood loss in recent past. No trauma or injury. Denies chest pressure, heaviness, tightness, or pain. Denies dyspnea at rest, paroxysmal nocturnal dyspnea, or orthopnea. Denies syncope or near-syncope. Denies palpitations or fluttering. Tolerating increased movements today although still has the abdominal discomfort. Exam Narrative: Exam Narrative: Appears mildly uncomfortable. Appears ill. Alert, oriented to self, place, time, situation. Friendly, articulate, cooperative. Mood and affect are congruent. Independent in transfer, station, and gait. No tremors, asterixis, or ataxia. Skin is warm, dry, intact. No petechiae, cyanosis, rashes. Lungs are clear to auscultation. Heart tones with regular rhythm. Abdomen with active bowel sounds, soft, nontender. Subjective discomfort to deep palpation in the epigastrium. Extremities without edema. Const: Vital Signs, click to edit/add: Vital Signs - 24 hr 01/23/22 18:09 01/23/22 18:51 01/23/22 18:05 Temperature 99.9 F H 100.4 F H Pulse Rate [Left P ulse Oximeter] Pulse Rate [Right Pulse Oximeter] 128 H 129 H Respiratory Rate 26 H 22 Blood Pressure [Ri ght Arm] Blood Pressure [Ri ght Upper Arm] 174/121 H 174/121 H Pulse Oximetry 94 94 Oxygen Delivery [facility] [place] Room Air Room Air 01/23/22 18:30 01/23/22 19:00 01/23/22 19:40 Temperature Pulse Rate [Left P ulse Oximeter] Pulse Rate [Right Pulse Oximeter] 128 H 128 H 137 H Respiratory Rate 27 H 18 23 Blood Pressure [Ri ght Arm] Blood Pressure [Ri ght Upper Arm] 199/126 H 190/136 H 180/129 H Pulse Oximetry 95 95 95 Oxygen Delivery [facility] [place] Room Air Room Air Room Air 01/23/22 20:00 01/23/22 20:43 01/23/22 21:00 Temperature 100.1 F H Pulse Rate [Left P ulse Oximeter] Pulse Rate [Right Pulse Oximeter] 131 H 116 H Respiratory Rate 15 24 Blood Pressure [Ri ght Arm] Blood Pressure [Ri ght Upper Arm] 181/121 H 172/97 H Pulse Oximetry 96 94 Oxygen Delivery Wi thod Room Air Room Air 01/23/22 20:30 01/23/22 21:30 01/23/22 22:00 Temperature Pulse Rate [Left P ulse Oximeter] Pulse Rate [Right Pulse Oximeter] 115 H 113 H 113 H Respiratory Rate 28 H 24 24 Blood Pressure [Ri ght Arm] Blood Pressure [Ri ght Upper Arm] 181/119 H 175/126 H 179/103 H Pulse Oximetry 92 93 95 Oxygen Delivery Wi thod Room Air Room Air Room Air 01/23/22 22:32 01/23/22 22:32 01/23/22 22:32 Temperature 98.3 F 98.3 F Pulse Rate [Left P ulse Oximeter] 113 H Pulse Rate [Right Pulse Oximeter] Respiratory Rate 20 20 Blood Pressure [Ri ght Arm] 167/117 H Blood Pressure [Ri ght Upper Arm] Pulse Oximetry 99 99 Oxygen Delivery Me thod Room Air Room Air Room Air 01/23/22 22:27 01/23/22 23:08 01/24/22 02:01 Temperature 98.3 F 98.3 F 98.6 F Pulse Rate [Left P ulse Oximeter] 113 H 113 H 101 H Pulse Rate [Right Pulse Oximeter] Respiratory Rate 20 20 20 Blood Pressure [Ri ght Arm] 167/117 H 167/117 H 173/120 H Blood Pressure [Ri ght Upper Arm] Pulse Oximetry 99 99 99 Oxygen Delivery [facility] [place] Room Air Room Air Room Air 01/24/22 07:00 01/24/22 07:00 01/24/22 11:25 Temperature 98.8 F 98.5 F Pulse Rate [Left P ulse Oximeter] 89 89 94 Pulse Rate [Right Pulse Oximeter] Respiratory Rate 20 20 20 Blood Pressure [Ri ght Arm] 190/127 H 177/126 H Blood Pressure [Ri ght Upper Arm] Pulse Oximetry 94 92 Oxygen Delivery [facility] [place] Room Air Room Air 01/24/22 11:00 Temperature 98.5 F Pulse Rate [Left P ulse Oximeter] 94 Pulse Rate [Right Pulse Oximeter] Respiratory Rate 20 Blood Pressure [Ri ght Arm] 177/126 H Blood Pressure [Ri ght Upper Arm] Pulse Oximetry 92 Oxygen Delivery [facility] Room Air Labs Labs: Laboratory Results - last 24 hr 01/23/22 01/23/22 01/23/22 18:15 18:15 18:15 WBC 9.34 RBC 4.89 Hgb 16.3 Hct 47.0 MCV 96 MCH 33 MCHC 35 RDW Coeff of Bhupendra 13.1 Plt Count 190 Neut % (Auto) 72.6 H Lymph % (Auto) 11.6 L L[place] % (Auto) 14.5 H Eos % (Auto) 0.9 Baso % (Auto) 0.3 Neut # (Auto) 6.80 Lymph # (Auto) 1.10 Loving # (Auto) 1.40 H Eos # (Auto) 0.08 Baso # (Auto) 0.03 Abs Immat Gran (auto) 0.01 Sodium 137 Potassium 3.7 Chloride 98 Carbon Dioxide 25 BUN 8 Creatinine 0.8 Estimated Creat Clear 110.47 Estimated GFR 103 Glucose 166 H Lactate 2.0 H Calcium 9.6 Total Bilirubin Direct Bilirubin AST ALT Alkaline Phosphatase NT-Pro-B Natriuret Pep Total Protein Albumin Lipase Urine Color Urine Appearance Urine pH Ur Specific [place] Urine Protein Urine Glucose (UA) Urine Ketones Urine Blood Urine Nitrite Urine Bilirubin Urine Urobilinogen Ur Leukocyte Esterase Urine RBC Urine WBC Ur Squamous Epith Cells Urine Bacteria SARS-CoV-2 Ag (Rapid) POC Troponin I 01/23/22 01/23/22 01/23/22 18:15 18:15 18:24 WBC RBC Hgb Hct MCV MCH MCHC RDW Coeff of Bhupendra Plt Count Neut % (Auto) Lymph % (Auto) Loving % (Auto) Eos % (Auto) Baso % (Auto) Neut # (Auto) Lymph # (Auto) Loving # (Auto) Eos # (Auto) Baso # (Auto) Abs Immat Gran (auto) Sodium Potassium Chloride Carbon Dioxide BUN Creatinine Estimated Creat Clear Estimated GFR Glucose Lactate Calcium Total Bilirubin 1.3 Direct Bilirubin 0.4 AST 121 H ALT 165 H Alkaline Phosphatase 89 NT-Pro-B Natriuret Pep 55 Total Protein 8.8 H Albumin 4.5 Lipase 1109 H Urine Color Urine Appearance Urine pH Ur Specific [place] Urine Protein Urine Glucose (UA) Urine Ketones Urine Blood Urine Nitrite Urine Bilirubin Urine Urobilinogen Ur Leukocyte Esterase Urine RBC Urine WBC Ur Squamous Epith Cells Urine Bacteria SARS-CoV-2 Ag (Rapid) negative POC Troponin I 0.01 01/23/22 01/24/22 01/24/22 19:46 05:58 05:58 WBC 9.39 RBC 4.46 Hgb 15.0 Hct 44.3 MCV 99 MCH 34 MCHC 34 RDW Coeff of Bhupendra 13.5 Plt Count 177 Neut % (Auto) 70.5 Lymph % (Auto) 11.5 L [place] % (Auto) 15.7 H Eos % (Auto) 1.8 Baso % (Auto) 0.3 Neut # (Auto) 6.62 Lymph # (Auto) 1.10 Loving # (Auto) 1.50 H Eos # (Auto) 0.17 Baso # (Auto) 0.03 Abs Immat Gran (auto) 0.02 Sodium 139 Potassium 4.0 Chloride 100 Carbon Dioxide 27 BUN 10 Creatinine 0.8 Estimated Creat Clear 110.47 Estimated GFR 103 Glucose 165 H Lactate Calcium 8.9 Total Bilirubin 1.5 Direct Bilirubin AST 89 H ALT 134 H Alkaline Phosphatase 69 NT-Pro-B Natriuret Pep Total Protein 8.3 Albumin 4.2 Lipase 545 H Urine Color Yellow Urine Appearance Clear Urine pH 8.5 Ur Specific [place] 1.015 Urine Protein Negative Urine Glucose (UA) Negative Urine Ketones Negative Urine Blood Negative Urine Nitrite Negative Urine Bilirubin Negative Urine Urobilinogen 0.2 Ur Leukocyte Esterase Negative Urine RBC 0-2 Urine WBC 0-2 Ur Squamous Epith Cells None Urine Bacteria None SARS-CoV-2 Ag (Rapid) POC Troponin I 01/24/22 05:58 WBC RBC Hgb Hct MCV MCH MCHC RDW Coeff of Bhupendra Plt Count Neut % (Auto) Lymph % (Auto) Loving % (Auto) Eos % (Auto) Baso % (Auto) Neut # (Auto) Lymph # (Auto) Loving # (Auto) Eos # (Auto) Baso # (Auto) Abs Immat Gran (auto) Sodium Potassium Chloride Carbon Dioxide BUN Creatinine Estimated Creat Clear Estimated GFR Glucose Lactate 1.1 Calcium Total Bilirubin Direct Bilirubin AST ALT Alkaline Phosphatase NT-Pro-B Natriuret Pep Total Protein Albumin Lipase Urine Color Urine Appearance Urine pH Ur Specific [place] Urine Protein Urine Glucose (UA) Urine Ketones Urine Blood Urine Nitrite Urine Bilirubin Urine Urobilinogen Ur Leukocyte Esterase Urine RBC Urine WBC Ur Squamous Epith Cells Urine Bacteria SARS-CoV-2 Ag (Rapid) POC Troponin I Imaging US - abdomen: Radiologist's impression: Gallbladder sludge but no calculus and no indication of acute cholecystitis or common duct obstruction. Fatty infiltrated liver. The pancreas was not well seen due to bowel gas.
[2022-01-24] MEDS: PHENobarbitaL 260 MG in 0.9 % SODIUM CHLORIDE 100 ml 100 ML 208 MG IVPB (13:25)
--- NOTE | 2022-01-24 19:34 | PC.NURSE ---
BP's continued to be elevated - Dr. Colón aware. CIWAS negative at this time. pain 5-11/12 - morphine given for this. pt pleasant and cooperative with cares. NS with 20k running. Phenobarb given today, pt tolerated well. abd. US done today. pt advanced to clears and tolerating well. report given to Claudia.
[2022-01-25 03:00] VITALS: BP 180/124; PULSE 98; RESP 20; TEMP 36.6; O2SAT 99
--- NOTE | 2022-01-25 05:14 | PC.NURSE ---
[id number]: patient appears to have slept entire shift, no c/o pain. tolerating clear diet, BP remains elevated. see VS and CIWA charting
[2022-01-25] MEDS: 0.9 % SODIUM CH + KCL 20 mEq/L 1,000 ML 125 ML IV (05:58)
[2022-01-25 06:54] LABS: Hematocrit 40.5 % (37.0-53.0); Hemoglobin* 13.7 gm/dL (13.5-17.5); Mean Corpuscular HGB Conc 34 gm/dL (32-36); Mean Corpuscular Hemoglobin 34 pg (26-34); Mean Corpuscular Volume 100 fL (80-100); Platelet Count* 144 K/uL (140-440); Red Blood Count 4.06 m/uL (4.30-5.90); White Blood Count* 6.52 K/uL (4.50-11.00)
[2022-01-25 06:58] LABS: Slide Review Reflex No
[2022-01-25 07:07] LABS: Potassium* 4.2 mmol/L (3.6-5.1); Sodium* 134 mmol/L (135-149)
[2022-01-25 07:10] LABS: Lipase* 295 U/L (23-300)
[2022-01-25 07:14] LABS: C Reactive Protein* 7.6 mg/dL (0.5-1.0)
[2022-01-25 08:13] VITALS: BP 184/114; PULSE 94; RESP 18; TEMP 36.9; O2SAT 97
[2022-01-25 08:15] VITALS: RESP 18
[2022-01-25] MEDS: GABAPENTIN 300 MG CAPSULE PO (08:49)
[2022-01-25] MEDS: CHLORTHALIDONE 25 MG TABLET PO (08:49)
[2022-01-25] MEDS: LOSARTAN POTASSIUM 50 MG TABLET 100 MG PO (08:50)
[2022-01-25] MEDS: TAMSULOSIN HCL 0.4 MG CAPSULE PO (08:50)
[2022-01-25] MEDS: METOPROLOL TARTRATE 25 MG TABLET PO (08:50)
[2022-01-25 11:30] VITALS: BP 132/86; PULSE 73; RESP 18; TEMP 36.7; TEMP 36.9; O2SAT 93
[2022-01-25 12:51] VITALS: RESP 18; TEMP 36.9
[2022-01-25 13:04] VITALS: BP 142/86; PULSE 74; RESP 18; TEMP 36.9
--- NOTE | 2022-01-25 14:53 | PC.NURSE ---
Discharge. pt has been very pleasant. no pain. He is up ab zain. SL was patent and d/c intact. he is eating, drinking and voiding with no problems. went over discharge packet. went over discharge packet. went over medications, appointment, education and instructions. pt went over and sign personal belonging sheet. pt did not want a w/c ride out. he walked out with all his belongings
--- NOTE | 2022-01-25 16:30 | PM.DS1 ---
DS: Providers Provider Time Seen by Provider: 15:00 Date Seen: 01/25/22 Date of admission: 01/23/22 21:46 Primary care physician: Jay Ríos MD Admitting Clinician: Cory Colón MD Attending Physician on discharge: Ubaldo Rizzo MD Date of Discharge: 01/25/22 DS: Diagnosis Discharge Diagnosis (1) Epigastric abdominal pain: Status: Acute (2) Pancreatitis, alcoholic, acute: Status: Acute (3) Sludge in gallbladder: Status: Acute Problem details: No gallstones per ultrasound 01/24/2022 (4) Alcohol abuse with alcohol-induced disorder: Status: Acute (5) Alcohol induced fatty liver: Status: Acute (6) Obesity (BMI 35.0-39.9 without comorbidity): Status: Acute (7) BPH (benign prostatic hyperplasia): Status: Chronic (8) Hypertension: Status: Chronic (9) Anxiety: Status: Acute DS: Summary Hospital Course Hospital Course: 56-year-old man presented with a 2 day history of increasing abdominal pain and nausea. Found to have acute pancreatitis. Initially gave conflicting history of amount of alcohol consumption ranging from 1-2 6 packs of beer per week to as much as a case a week. Claims he a increased his drinking consumption substantially after the the of his . Most likely alcohol exposure is the cause of his acute pancreatitis. No obvious gallstones. Did have sludge in the gallbladder on ultrasound assessment. Treated him conservatively. Initially NPO with IV fluids plus analgesics and antiemetics as needed. Subsequently we stop the IV fluids and increased his oral intake which she tolerated. At time of discharge he is tolerating a soft diet without any difficulties. Status at Discharge Functional status at discharge: independent ambulation Overall status at discharge: patient is progressing back to baseline Time Spent with Patient Time attestation: Total time spent providing and/or coordinating discharge services: Time spent: Greater than 30 minutes Exam Narrative: Exam Narrative: Appears comfortable.? No longer appears ill as he did yesterday. Alert, oriented to self, place, time, situation. Friendly, articulate, cooperative.? Mood and affect are congruent.? Independent in transfer, station, and gait.? No tremors, asterixis, or ataxia. Skin is warm, dry, intact.? No petechiae, cyanosis, rashes. Lungs are clear to auscultation.? Heart tones with regular rhythm.? Abdomen with active bowel sounds, soft, nontender.? Extremities without edema. Independent transfer, station, and gait. No tremor, asterixis or ataxia. No focal motor neurologic deficits. Const: Vital Signs, click to edit/add: Vital Signs - 24 hr 01/24/22 19:00 01/24/22 23:00 01/24/22 23:00 Temperature 98.5 F 98.5 F Pulse Rate Pulse Rate [Left P ulse Oximeter] 98 96 98 Respiratory Rate 20 20 20 Blood Pressure Blood Pressure [Ri ght Arm] 201/128 H 189/125 H Pulse Oximetry 95 95 Oxygen Delivery Me thod Room Air Room Air 01/25/22 03:00 01/25/22 08:13 01/25/22 08:15 Temperature 98 F 98.4 F Pulse Rate Pulse Rate [Left P ulse Oximeter] 98 94 Respiratory Rate 20 18 18 Blood Pressure Blood Pressure [Ri ght Arm] 180/124 H 184/114 H Pulse Oximetry 99 97 Oxygen Delivery Me thod Room Air Room Air 01/25/22 12:51 01/25/22 11:30 01/25/22 13:04 Temperature 98.4 F 98.0 F 98.4 F Pulse Rate 74 Pulse Rate [Left P ulse Oximeter] 73 Respiratory Rate 18 18 18 Blood Pressure 142/86 H Blood Pressure [Ri ght Arm] 132/86 Pulse Oximetry 93 Oxygen Delivery Me thod Room Air 01/25/22 11:30 Temperature 98.4 F Pulse Rate Pulse Rate [Left P ulse Oximeter] 73 Respiratory Rate 18 Blood Pressure Blood Pressure [Ri ght Arm] 132/86 Pulse Oximetry 93 Oxygen Delivery Me thod Room Air Documenting provider has reviewed patient's vital signs: yes DS: Data Data Completed and Pending Labs on day of discharge: Labs from last 24 hours 01/25/22 01/25/22 06:34 06:34 WBC 6.52 RBC 4.06 L Hgb 13.7 Hct 40.5 MCV 100 MCH 34 MCHC 34 Plt Count 144 Sodium 134 L Potassium 4.2 Magnesium 2.0 C-Reactive Protein 7.6 H Lipase [address] scan - abdomen: Attestation: I have reviewed the pertinent imaging results. Radiologist's impression: 1. Assessment for pulmonary embolism limited by non-optimal opacification of the pulmonary arterial circulation. No moderate or large pulmonary embolism. 2. Chronically elevated right hemidiaphragm with right basilar atelectasis. 3. No acute lung infiltrate. 4. Peripancreatic inflammatory changes associated with the head of the pancreas likely reflecting pancreatitis changes. This may be correlated with pancreatic enzymes. No pseudocyst or pancreatic necrosis. 5. Fatty infiltration of the liver. US - abdomen: Attestation: I have reviewed the pertinent imaging results. Radiologist's impression: Gallbladder sludge but no calculus and no indication of acute cholecystitis or common duct obstruction. Fatty infiltrated liver. The pancreas was not well seen due to bowel gas. Discharge Plan Discharge Disposition: Home, Self-Care Date of Admission: 01/23/22 21:46 Attending Provider on Discharge: Ubaldo Rizzo Primary Care Provider: Jay Ríos Condition: Improved Anticipated Discharge Date/Time: 01/25/22 14:00 Discharge Medications: New metoprolol tartrate 25 mg Tablet 25 mg PO BID Qty: 60 0RF acetaminophen 325 mg tablet 650 mg PO QID PRNQty: 100 0RF oxycodone 5 mg tablet 5 mg PO Q8H PRN (Reason: pain) Qty: 10 0RF Continued chlorthalidone 25 mg tablet 25 mg PO DAILY Label Comments: TAKE 1 TABLET BY MOUTH DAILY tamsulosin 0.4 mg capsule 0.4 mg PO DAILY Label Comments: TAKE 1 CAPSULE BY MOUTH DAILY losartan 100 mg tablet 100 mg PO DAILY alprazolam 0.5 mg tablet 0.5 mg PO BID PRN (Reason: anxiety) Qty: 42 1RF Rx Instructions: Please inform patient this must last 3 weeks and no refill for 3 weeks. Discharge Orders: Discharge Order (Routine); Ordered 01/25/22 Ordered By: Ubaldo Rizzo Patient Education: Metoprolol (By mouth), Acetaminophen (By mouth), Oxycodone, Rapid Release (By mouth), Pancreatitis (GEN), Abuse of Alcohol (GEN), Alcohol Use Disorder (GEN) Activity Restrictions/Additional Instructions: 1. May resume work without restrictions on Saturday; 2. Avoid consumption of any products containing alcohol; 3. I recommend chemical dependency assessment and consideration of chemical dependency treatment if warranted, such as AA participation, outpatient or inpatient treatment; 4. Return to clinic or hospital sooner if condition worsens. Activity Level: No Restrictions and Activity as Tolerated Discharge Diet: Regular Follow Up Appointments: Jay Ríos MD [Primary Care Provider] - 01/30/22 9:45 am (Alcohol induced acute pancreatitis, hypertension, and hyponatremia follow-up) Forms: [employer] Info Instructions
== END 2022-01-25 13:40 | disposition home or self-care (01) ==
LOC: ED 19:03 → MEDSURG 01-24 09:10
PROVIDERS: Internal Medicine; Admitting Provider Internal Medicine; Emergency Provider Family Medicine; PCP Family Medicine; Visit Provider Internal Medicine
DX: K85.20 Alcohol induced acute pancreatitis without necrosis or infection (principal); K82.8 Other specified diseases of gallbladder; K70.0 Alcoholic fatty liver; F10.19 Alcohol abuse with unspecified alcohol-induced disorder; N20.0 Calculus of kidney; E66.9 Obesity, unspecified; Z68.35 Body mass index [BMI] 35.0-35.9, adult; F41.9 Anxiety disorder, unspecified; N40.0 Benign prostatic hyperplasia without lower urinary tract symptoms; I10 Essential (primary) hypertension; R53.83 Other fatigue; R10.13 Epigastric pain; R00.0 Tachycardia, unspecified; R10.819 Abdominal tenderness, unspecified site; R74.02 Elevation of levels of lactic acid dehydrogenase [LDH]; R74.01 Elevation of levels of liver transaminase levels; R74.8 Abnormal levels of other serum enzymes; Z87.891 Personal history of nicotine dependence; R10.10 Upper abdominal pain, unspecified; R05.9 Cough, unspecified; Z20.822 Contact with and (suspected) exposure to COVID-19; R11.0 Nausea
CPT/HCPCS: 36415; 71260; 74177; 76705; 80048; 80053; 80076; 81001; 83605; 83690; 83735; 83880; 84132; 84295; 84484; 85025; 85027; 86140; 87426; 93005; 96361; 96365; 96375; 96376; 99285; A9270; G0378; G0379; J1170; J2270; J2405; J2560; J7030; Q9967

== ENCOUNTER 2022-10-31 14:09 | Outpatient (CLI) | payer OTHER, SELFPAY ==
--- OUTSIDE RECORDS SUMMARY | 2022-10-31 14:11 | XMS_ITS | Continuity of Care Document ---
Author Name Unknown Organization Z [facility] Address [address] [place] [address] Phone Care Team Providers Care Cras Name Role Phone Unavailable Unavailable Unavailable Procedures Procedure Date Office/outpatient visit[place] [facility] [place] total spine Advance Directives Directive Yes / No Effective Date File Name No Information Encounters Encounter Description Practice Location Reason(s) For Visit Diagnoses Date Provider Providers Copied on Encounter Z [facility], [address] [place] [address], [address], tel:[phone] [place] Self Representation Document Preparation No Information 0 No Information [place] [facility] [place] [facility], [address] [place] [address], [place], [address], tel:[phone] No Information 0 Jaiden Kinney. [facility], [address], [address], [place], [place], [id number], . tel:[phone] Referring Provider: Jaxon Somers, [facility] [address] [place] [address], [address]. tel:[phone] Family History Family Member Type Diagnosis Age At Onset No Information Payers Payer name Insurance type Covered libertarian ID Authorharjeeta deyanirabruno(s) [facility] [id number] BL [id number] Social History Type Description Quantity Date Captured Comments Sex Male Smoking Status No Information Chief Complaint And Reason For Visit No Information Reason For Referral Reason For Referral No Information Plan Of Treatment Date Type Action Status No Information History Of Present Illness Encounter Date Complaint History Of Prese nt Illness No Information Functional Status Date Functional Assessmen t No Information Instructions Date Instruction Additional Infor mation No Information Assessments Type Assessment Date No Information Patient Care Teams Name Effective Dates (start - stop) Status Members No Information
== END 2022-10-31 14:10 | disposition home or self-care (01) ==
LOC: LONREF 14:09
PROVIDERS: PCP Family Medicine; Visit Provider Family Medicine
DX: F10.19 Alcohol abuse with unspecified alcohol-induced disorder (principal); I10 Essential (primary) hypertension; E66.9 Obesity, unspecified; R50.9 Fever, unspecified
CPT/HCPCS: 80076

== ENCOUNTER 2023-06-25 11:17 | Outpatient (CLI) | payer OTHER, SELFPAY ==
--- OUTSIDE RECORDS SUMMARY | 2023-06-25 11:22 | XMS_ITS | Referral Summary ---
Author Name Unknown Organization [facility] Address [address] [place] [address] Care Team Providers Care Safety Physician Name Role Phone No Ref-Primary, Physician Primary Care Provider Arthur Melara MD Unavailable [phone] Allergies No known active allergies Medications Medication Sig Dispensed Refills Start Date End Date Status gabapentin (NEURONTIN) 100 MG capsule 0 10/18/2022 Active ibuprofen (ADVIL/MOTRIN) 800 MG tablet Take 800 mg by mouth 0 Active labetalol (NORMODYNE) 200 MG tablet 0 11/04/2022 Active lisinopril (ZESTRIL) 40 MG tablet Take 1 tablet by mouth daily at 2 pm 0 11/04/2022 Active tadalafil (CIALIS) 20 MG tablet 0 10/31/2022 Active tamsulosin (FLOMAX) 0.4 MG capsule Take 0.4 mg by mouth daily 0 06/10/2022 Active amLODIPine (NORVASC) 10 MG tablet Take 10 mg by mouth daily 0 Active Social History Tobacco Use Types Packs/Day Years Used Date Smoking Tobacco: Never Assessed Adolescent Education Answer Date Record ed Getting School Help Needed Not on file 01/26 Sex and Gender Information Value Date Recorded Sex Assigned at Not on file Gender Identity Not on file Sexual Orientation Not on file Last Filed Vital Signs Vital Sign Reading Time Taken Comments Blood Pressure 128/79 11/08/2022 9:41 AM CDT Pulse 57 11/08/2022 9:41 AM CDT Temperature - - Respiratory Rate - - Oxygen Saturation - - Inhaled Oxygen Concentration - - Weight - - Height - - Body Mass Index - - Plan of Treatment Not on file Care Teams Safety Physician Relationship Specialty Start Date End Date No Ref-Primary, Physician PCP - General 11/02/22 Arthur Melara MD [address] [place] [address] Assigned Heart and Vascular Provider 11/17/22
--- OUTSIDE RECORDS SUMMARY | 2023-06-25 11:22 | XMS_ITS | Clinical Summary ---
Author Name Unknown Organization [facility] Address [address] [place] [address] Care Team Providers Care Farm Or Ranch Animal Caretaker Name Role Phone No Ref-Primary, Physician Primary Care Provider Arthur Melara MD Unavailable [phone] Allergies No known active allergies Medications Medication [...] Mass Index - - Plan of Treatment Health Maintenance Due Date Last Done Comments ADVANCE CARE PLANNING 1963 ANNUAL REVIEW OF HM ORDERS 1963 CT COLONOGRAPHY 1963 FIT 1963 FLEX SIG 1963 GLUCOSE 1963 HEPATITIS B IMMUNIZATION (1 of 3 - 3-dose series) 1963 YEARLY PREVENTIVE VISIT 1963 sDNA (Cologuard) 1963 COVID-19 Vaccine (#1) 01/07/1964 COLONOSCOPY 07/06/1973 COLORECTAL CANCER SCREENING 07/06/1973 HIV SCREENING 07/06/1978 IPV IMMUNIZATION (3 of 3 - 4-dose series) 12/14/1980 06/16/1980, 05/19/1980 HEPATITIS C SCREENING 07/06/1981 LIPID 2003 ZOSTER IMMUNIZATION (1 of 2) 07/06/2013 INFLUENZA VACCINE (#1) 2023 2, 04/19/2016, 05/01/2013, Additional history exists PHQ-2 (once per calendar year) 2023 DTAP/TDAP/TD IMMUNIZATION (2 - Td or Tdap) 09/22/2025 09/23/2015 HPV IMMUNIZATION Aged Out No longer e ligible based on patient's age to complete this topic MENINGITIS IMMUNIZATION Aged Out No l onger eligible based on patient's age to complete this topic Pneumococcal Vaccine: Pediatrics (0 to 5 Years) and At-Risk Patients (6 to 64 Years) Aged Out No longer eligible based on patient's age to complete this topic RSV MONOCLONAL ANTIBODY Aged Out No l onger eligible based on patient's age to complete this topic Care Teams Farm Or Ranch Animal Caretaker Relationship Specialty Start Date End Date No Ref-Primary, Physician PCP - General 11/02/22 Arthur Melara MD [address] [place] [address] Assigned Heart and Vascular Provider 11/17/22
--- OUTSIDE RECORDS SUMMARY | 2023-06-25 11:22 | XMS_ITS | Encounter Summary ---
Author Name Unknown Organization [facility] Address [address] [place] [address]. [place] [address] Care Team Providers Care Forest Technician Name Role Phone Unavailable Primary Care Provider Unavailabl e Reason for Referral * Diagnostic Imaging CT Scan (Routine) - Closed Specialty Diagnoses / Procedures Referred By Bhavik keith Referred To Contact Radiology. Diagnoses Dissecting abdominal aortic aneurysm (AAA) (H) Procedures CTA Abdomen Pelvis with Contrast Arthur Melara MD [address] [place] [address] Referral ID Status Reason Start Date Expiration Date Visits Re quested Visits Authorized [id number] Closed 11/01/2022 11/01/2023 1 1 Reason for Visit * Reason Onset Date Comments Referral 10/31/2022 Encounter Details Date Type Department Care Team (Late st Contact Info) Description 10/31/2022 [facility] [place] [address] [place] [phone] Unknown Referral Social History Tobacco Use Types Packs/Day Years Used Date Smoking Tobacco: Never Assessed Sex and Gender Information Value Date Recorded Sex Assigned at Not on file Gender Identity Not on file Sexual Orientation Not on file documented as of this encounter Miscellaneous Notes * Telephone Encounter - Jewels Bradford RN - 11/01/2022 12:[address] Melara spoke directly with Dr. Ríos and is aware of patient and referral. ELLEN White, RN-[facility] [place] * Telephone Encounter - Bradley Cyr - 11/01/2022 11:58 AM CDT First available: Future Appointments Date Time Provider Department [place] 11/02/2022 12:20 PM SHCT1 [facility] 11/08/2022 9:30 AM Arthur Melara MD [facility] * Telephone Encounter - Bradley Cyr - 11/01/2022 11:[address] Pended in this encounter: [id number] Left voicemail with instructions for patient to call back to schedule their appointment(s) November 01, 2022 , 11:36 AM * Telephone Encounter - Jewels Bradford RN - 10/31/2022 3:05 PM CDT Care Everywhere updated. 10/02/22 CTA abdomen/pelvis notes the following: Impression: 1. ??Stable appearance of the abdominal aortic dissection which appears to originate at the aortic hiatus and extend through the bilateral common iliac arteries, as described. There is mild distal periaortic inflammation. 2. ??No AAA. Ectatic bilateral common iliac arteries. 3. ??Please see the CT chest??report dictated separately for intrathoracic findings. Requested imaging to be pushed to PACS. Confirmed receipt. LVM with Elysia at [facility] requesting call back to discuss further. She returned call on 11/01/22. Confirmed records from Dr. Carlyle Ríos were faxed. Dr. Ríos would like to speak with the consulting provider prior to appointment. I reviewed imaging with Dr. Melara and he recommended a repeat CTA abdomen/pelvis. Routing to scheduling to contact patient to coordinate consult with [facility] with imaging prior. Appt note: Ref by Dr. Carlyle Ríos ([facility]) for abdominal aortic dissection; 10/02/22 CTA C/A/P noted stable appearance of the abdominal aortic dissection; CTA A/P to be scheduled. Please route back to plastic joint maker pool to assure consulting provider is aware to speak with Dr. Ríos. Number and notes in nurse office. ELLEN White, RN-[facility] [place] * Telephone Encounter - Jemal Bhatt CNA - 10/31/2022 2:49 PM CDT [facility] Who is the name of the provider?: Unknown What is the location you see this provider at/preferred location?: [place] / [place] Person calling / Facility[place] [facility] [place] 2[place] Phone number:^ [phone]/ direct elysia, this is refering clinic Nurse call back needed: yes Reason for call: Patient has dissecting aortic abdominal aneurysm,he was seen in [facility] this past weekend, they are sending records via fax , want to see a vascular surgeon Pharmacy location: chart Outside Imaging: sending Can we leave a detailed message on this number? yes documented in this encounter Plan of Treatment Not on file documented as of this encounter Results * CTA Abdomen Pelvis with Contrast (11/02/2022 11:59 AM CDT) Anatomical Region Laterality Modality Abdomen/Pelvis, SUBRAD IR MI REED, UMP CT CTA, RAD CT Computed Tomography Impressions 11/02/2022 3:38 PM CDT IMPRESSION: 1. Juxtarenal/infrarenal abdominal aortic dissection extending into the left common iliac artery as described above. The visceral branches of the abdominal aorta are patent without significant stenoses. 2. 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 YONY TAYLOR MD Narrative 11/02/2022 3:38 PM CDT CTA ABDOMEN/PELVIS WITH CONTRAST ??November 02, 2022 11:59 AM HISTORY: Abdominal aortic dissection. COMPARISON: CT of the abdomen/pelvis dated 10/04/2022. TECHNIQUE: CT angiogram of the abdomen and pelvis was performed following the administration of 80 cc intravenous contrast. Images are viewed in multiple planes and 3-D reconstructions were also performed. Radiation dose for this scan was reduced using automated exposure control, adjustment of the mA and/or kV according to patient size, or iterative reconstruction technique. FINDINGS: Vascular exam: Abdominal aorta: Again identified is a dissection originating in the juxtarenal/infrarenal abdominal aorta at the level of the origin of the left renal artery. The dissection courses and terminates in the mid distal left common iliac artery. The celiac trunk, superior mesenteric artery, single bilateral renal arteries and inferior mesenteric artery are patent without significant stenoses. The dissection encroaches on the origin of the inferior mesenteric artery which appears to originate from the true lumen. The overall extent of the dissection is not significantly changed. The abdominal aorta at the level of the dissection is unchanged and has a maximum dimension of approximately 2.7 cm. The maximum diameter of the left common iliac artery is approximately 2.3 cm. This is unchanged. The iliac arteries and proximal femoral arteries are patent without significant stenoses. Soft tissue exam: The lung bases are clear. There is elevation of the left hemidiaphragm. The solid organs in the abdomen are unremarkable. There are scattered colonic diverticuli. No evidence for acute diverticulitis. The bowel otherwise appears grossly unremarkable. Procedure Note Yony Taylor MD - 11/02/2022 CTA ABDOMEN/PELVIS WITH CONTRAST November 02, 2022 11:59 AM HISTORY: Abdominal aortic dissection. COMPARISON: CT of the abdomen/pelvis dated 10/04/2022. TECHNIQUE: CT angiogram of the abdomen and pelvis was performed following the administration of 80 cc intravenous contrast. Images are viewed in multiple planes and 3-D reconstructions were also performed. Radiation dose for this scan was reduced using automated exposure control, adjustment of the mA and/or kV according to patient size, or iterative reconstruction technique. FINDINGS: Vascular exam: Abdominal aorta: Again identified is a dissection originating in the juxtarenal/infrarenal abdominal aorta at the level of the origin of the left renal artery. The dissection courses and terminates in the mid distal left common iliac artery. The celiac trunk, superior mesenteric artery, single bilateral renal arteries and inferior mesenteric artery are patent without significant stenoses. The dissection encroaches on the origin of the inferior mesenteric artery which appears to originate from the true lumen. The overall extent of the dissection is not significantly changed. The abdominal aorta at the level of the dissection is unchanged and has a maximum dimension of approximately 2.7 cm. The maximum diameter of the left common iliac artery is approximately 2.3 cm. This is unchanged. The iliac arteries and proximal femoral arteries are patent without significant stenoses. Soft tissue exam: The lung bases are clear. There is elevation of the left hemidiaphragm. The solid organs in the abdomen are unremarkable. There are scattered colonic diverticuli. No evidence for acute diverticulitis. The bowel otherwise appears grossly unremarkable. IMPRESSION: 1. Juxtarenal/infrarenal abdominal aortic dissection extending into the left common iliac artery as described above. The visceral branches of the abdominal aorta are patent without significant stenoses. 2. 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 YONY TAYLOR MD Arthur Melara MD IMG CT ORDERABL ES documented in this encounter Visit Diagnoses Diagnosis Dissecting abdominal aortic aneurysm (AAA) (H)- Primary Dissecting abdominal aortic aneurysm (AAA) (H) documented in this encounter
--- OUTSIDE RECORDS SUMMARY | 2023-06-25 11:22 | XMS_ITS | Encounter Summary ---
Author Name Unknown Organization [facility] Address [address] [place] [address] Care Team Providers Care Corporate Financial Analyst Name Role Phone No Ref-Primary, Physician Primary Care Provider Reason for Referral * Diagnostic Imaging CT Scan (Routine) - Closed Specialty Diagnoses / Procedures Referred By Contac t Referred To Contact Radiology. Diagnoses Dissecting abdominal aortic aneurysm (AAA) (H) Procedures CTA Abdomen Pelvis with Contrast Arthur Melara MD [address] [address] Referral ID Status Reason Start Date Expiration Date Visits Re quested Visits Authorized [id number] Closed 11/01/2022 11/01/2023 1 1 Reason for Visit * Diagnostic Imaging CT Scan (Routine) - Closed Specialty Diagnoses / Procedures Referred By Contac t Referred To Contact Radiology. Diagnoses Dissecting abdominal aortic aneurysm (AAA) (H) Procedures CTA Abdomen Pelvis with Contrast Arthur Melara MD [address] [address] Referral ID Status Reason Start Date Expiration Date Visits Re quested Visits Authorized [id number] Closed 11/01/2022 11/01/2023 1 1 Encounter Details Date Type Department Care Team (Late st Contact Info) Description 11/02/2022 11:25 AM CDT - 11/02/2022 11:59 PM CDT Hospital Encounter [facility] [address] [place] [phone] Non-Fv Credentialed Provider, [facility] - [facility] [place] [facility] [address] [facility] [address] [place] [address] Dissecting abdominal aortic aneurysm (AAA) (H) Discharge Disposition: Home or Self Care Social History Tobacco Use Types Packs/Day Years Used Date Smoking Tobacco: Never Assessed Sex and Gender Information Value Date Recorded Sex Assigned at Not on file Gender Identity Not on file Sexual Orientation Not on file COVID-19 Exposure Response Date Recorded In the last 10 days, have yo u been in contact with someone who was confirmed or suspected to have Coronavirus/COVID-19? No / Unsure 11/02/2022 11:20 AM CDT documented as of this encounter Medications at Time of Discharge Medication Sig Dispensed Refills Start Date End Date gabapentin (NEURONTIN) 100 MG capsule 0 10/18/2022 tadalafil (CIALIS) 20 MG tablet 0 10/31/2022 tamsulosin (FLOMAX) 0.4 MG capsule Take 0.4 mg by mouth daily 0 06/10/2022 documented as of this encounter Plan of Treatment Not on file documented as of this encounter Procedures Procedure Name Priority Date/Time Associated Diagnosis Comments CTA ABDOMEN PELVIS WITH CONTRAST Routine 11/02/2022 11:59 AM CDT Dissecting abdominal aortic aneurysm (AAA) (H) documented in this encounter Results * CTA Abdomen Pelvis with Contrast (11/02/2022 11:59 AM CDT) Anatomical Region Laterality Modality Abdomen/Pelvis, SUBRAD IR ALICIA MYERS CT CTA, RAD CT Computed Tomography Impressions [...] Diagnoses Diagnosis Dissecting abdominal aortic aneurysm (AAA) (H) documented in this encounter Administered Medications Inactive Administered Medications - up to 3 most recent administrations Medication Order MAR Action Action Date Dose Rate Site iopamidol (ISOVUE-370) solution 80 mL 80 mL, Intravenous, ONCE, On Sat11/02/22 at 1130, For 1 dose $Given 11/02/2022 11:36 AM CDT 80 mLs Saline Intravenous, 80 mL, ONCE, On Sat11/02/22 at 1130, For 1 dose $Given 11/02/2022 11:36 AM CDT 80 mLs documented in this encounter Care Teams Corporate Financial Analyst Relationship Specialty Start Date End Date No Ref-Primary, Physician PCP - General 11/02/22 documented as of this encounter
--- OUTSIDE RECORDS SUMMARY | 2023-06-25 11:22 | XMS_ITS | Encounter Summary ---
Author Name Unknown Organization [facility] Address [address] [place] [address] Care Team Providers Care Lubrication Supervisor Name Role Phone No Ref-Primary, Physician Primary Care Provider Encounter Details Date Type Department Care Team (Latest Contact Info) Description 11/02/2022 Travel Social History Tobacco Use Types Packs/Day Years [...] AM CDT documented as of this encounter Plan of Treatment Not on file documented as of this encounter Visit Diagnoses Not on filedocumented in this encounter Care Teams Lubrication Supervisor Relationship Specialty Start Date End Date No Ref-Primary, Physician PCP - General 11/02/22 documented as of this encounter
--- OUTSIDE RECORDS SUMMARY | 2023-06-25 11:22 | XMS_ITS | Clinical Summary ---
Author Name Unknown Organization [id number] Address [place], [place] [address] Care Team Providers Care Computer Forensics Technician Name Role Phone Ketty Reddy MD Primary Care Provider Allergies No known active allergies Medications Medication Sig Dispensed Refills Start Date End Date Status traMADol (ULTRAM) 50 mg tablet Take 50 mg by mouth every 6 hours if needed for Pain. 0 Active tamsulosin (FLOMAX) 0.4 mg capsule Take 0.4 mg by mouth once daily after a meal. 0 Active ibuprofen (ADVIL; MOTRIN) 800 mg tablet Take 800 mg by mouth 2 times daily if needed. 0 Active Social History Tobacco Use Types Packs/Day Years Used Date Smoking Tobacco: Never Smokeless Tobacco: Never Alcohol Use Standard Drinks/Week Comments Not Asked 0 (1 standard drink = 0.6 oz pur e alcohol) Sex and Gender Information Value Date Recorded Sex Assigned at Not on file Gender Identity Not on file Sexual Orientation Not on file Obstetrics History Last Filed Vital Signs Vital Sign Reading Time Taken Comments Blood Pressure 108/70 06/07/2014 9:39 AM INSURANCE CLAIMS EXAMINER Pulse 60 06/07/2014 9:39 AM INSURANCE CLAIMS EXAMINER Temperature 36.6 ??C (97.8 ??F) 11/28/2016 1 1:00 AM CDT Respiratory Rate 16 06/07/2014 9:39 AM INSURANCE CLAIMS EXAMINER Oxygen Saturation 98% 06/07/2014 9:39 AM INSURANCE CLAIMS EXAMINER Inhaled Oxygen Concentration - - Weight 103.3 kg (227 lb 12.8 oz) 2016 11:00 AM CDT Height 182.9 cm (6') 06/07/2014 7:55 AM INSURANCE CLAIMS EXAMINER Body Mass Index 30.9 06/07/2014 7:55 AM INSURANCE CLAIMS EXAMINER Plan of Treatment Health Maintenance Due Date Last Done Comments COVID-19 vaccine series (#1) 01/07/1964 Tdap 07/06/1974 Depression screening for age 12+ 1975 HIV for age 15-65 07/06/1978 BMI (ht and wt on same day) for age 18+ 07/06/1981 Hepatitis C screening for ag e 18-79 07/06/1981 Tetanus booster 1983 Colonoscopy through age 75 07/06/2008 Lipids for age 45-75 07/06/2008 Zoster (shingles) series for age 50+ (1 of 2) 07/06/2013 Influenza for age 50-64 01/04/2023 Pneumococcal series for age 6-64 Aged Out No longer eligible based on patient's age to complete this topic Advance Directives Latest Code Status on File Code Status Date Activated Date Inactivated Comments Full Code 06/07/2014 7:34 AM 06/07/2014 11:43 AM Care Teams Computer Forensics Technician Relationship Specialty Start Date End Date Ketty Reddy MD PCP - General Family Practice 06/07/14
--- OUTSIDE RECORDS SUMMARY | 2023-06-25 11:22 | XMS_ITS | Encounter Summary ---
Author Name Unknown Organization [facility] Address [address] [place] [address] Care Team Providers Care Excelsior Machine Operator Name Role Phone No Ref-Primary, Physician Primary Care Provider Encounter Details Date Type Department Care Team (Latest Contact Info) Description 11/08/2022 Travel Social History Tobacco Use Types Packs/Day [...] suspected to have Coronavirus/COVID-19? No / Unsure 11/08/2022 9:27 AM CDT documented as of this encounter Plan of Treatment Not on file documented as of this encounter Visit Diagnoses Not on filedocumented in this encounter Care Teams Excelsior Machine Operator Relationship Specialty Start Date End Date No Ref-Primary, Physician PCP - General 11/02/22 documented as of this encounter
--- OUTSIDE RECORDS SUMMARY | 2023-06-25 11:22 | XMS_ITS | Encounter Summary ---
Author Name Unknown Organization [facility] Address [address] [place] [address]. [place] [address] Care Team Providers Care Foreclosure Specialist Name Role Phone No Ref-Primary, Physician Primary Care Provider Encounter Details Date Type Department Care Team (Late st Contact Info) Description 10/31/2022 Medical Correspondence [facility] [address] [place] [phone] Outside, Provider Social History Tobacco Use Types Packs/Day Years [...] on filedocumented in this encounter Care Teams Foreclosure Specialist Relationship Specialty Start Date End Date No Ref-Primary, Physician PCP - General 11/02/22 documented as of this encounter
--- OUTSIDE RECORDS SUMMARY | 2023-06-25 11:22 | XMS_ITS | Encounter Summary ---
Author Name Unknown Organization [facility] Address [address] [place] [address] Care Team Providers Care Senior Dynamics Crm Developer Name Role Phone No Ref-Primary, Physician Primary Care Provider Reason for Referral * Diagnostic Imaging CT Scan (Routine) - Authorized Specialty Diagnoses / Procedures Referred By Bhavik t Referred To Contact Radiology. Diagnoses Aortic dissection, abdominal (H) Procedures CTA Abdomen Pelvis with Contrast Arthur Melara MD [address] [place] [address] Referral ID Status Reason Start Date Expiration Date V isits Requested Visits Authorized [id number] Authorized 11/08/2022 11/08/2023 1 1 Reason for Visit * Reason Comments Consult Encounter Details Date Type Department Care Team (Late st Contact Info) Description 11/08/2022 9:30 AM CDT Office Visit [facility] [place] [address] [place] [phone] Non-Fv Credentialed Provider, Radiology Arthur Melara MD [address] [place] [address] Aortic dissection, abdominal (H) (Primary Dx) Social History Tobacco Use Types Packs/Day Years [...] AM CDT documented as of this encounter Last Filed Vital Signs Vital Sign Reading Time Taken Comments Blood Pressure 128/79 11/08/2022 9:41 AM CDT Pulse 57 11/08/2022 9:41 AM CDT Temperature - - Respiratory Rate - - Oxygen Saturation - - Inhaled Oxygen Concentration - - Weight - - Height - - Body Mass Index - - documented in this encounter Progress Notes * Arthur Melara MD - 11/08/2022 9:30 AM CDT Images from the original note were not included. [facility] Dov Alexander suffered a aortic dissection with no complications. The patient of Dr. Carlyle Ríos. He appropriately felt that follow-up was indicated and we scheduled a CTA performed on 11/02/2022 along with the clinic visit to establish long-term care. Patient lives in [facility]. He was in [place] when he developed acute severe pain in his left flank 10/02/2022. Transferred to [facility] found to have an abdominal aorticdissection treated with close observation along with blood pressure control. Blood pressure is wellover 200 at the time of the dissection. History of hypertension with blood pressure in the range of160 on his previous medications. Treated conservatively with aggressive blood pressure and pulse control. Follow-up CT 10/04/2022 revealed a stable dissection starting at the aortic hiatus extending toboth common iliac arteries. No AAA. Normal CTA of the thoracic aorta. No recurrence of the flank or pelvic pain. Legs have been unremarkable. PMH: Medications: Lisinopril, labetalol, Norvasc, Neurontin Medical: Hypertension History of pancreatitis, renal stones, alcohol No known vascular disease Never smoked. ROS: Works for [employer]. Does require lifting and pulling. Presently on disability due to this issue. Anxious to get back to work. Has noted some mild shortness of breath which could be related to the lisinopril. FMH: Unremarkable. Exam: Alert and appropriate. Very pleasant. Here with his . Blood pressure 128/74 right arm and 126/80 left arm. Pulse 56 regular Normal body habitus with no Marfan stigmata Chest= clear Cardiovascular= regular rate Abdomen= mildly obese, soft, nontender Extremities= no edema. Normal CMS. +3 palpable PT pulses bilaterally. Normal popliteal pulses. Bedside Doppler with normal triphasic waveforms in both posterior tibial and left anterior tibial artery. 11/02/2022 CTA of abdomen pelvis: Dissection noted originating in the juxtarenal abdominal aorta at the level of the left renal artery this terminates in the left mid distal common iliac artery. A more proximal aorta is unremarkable. Normal celiac, SMA, single bilateral renal arteries. Patent RASHARD with dissection encroaching on this with flow from the true lumen. Maximal aortic diameter 2.7 cm and left common iliac artery 2.3 cm. Normal more distal iliac arteries and femoral arteries. I reviewed the images with the patient and his . Mild calcified plaque in the infrarenal aorta but not in the distal iliac arteries. No stenosis. IMPRESSION: #1. 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 This is a more unusual finding since most aortic dissection started at the aortic arch and this was discussed. There is still some flow in the false lumen but all vessels come off the true lumen. Dissection was carried down to the distal portion of the left common aortic artery where there is mild dilatation at 2.3 cm with the right being normal. Patient has excellent distal perfusion. We discussed the issues at length. Conservative treatment is appropriate consisting of excellent blood pressure and pulse control which he is noticing with the new medications. We will plan a 6-month follow-up CTA to make sure there is no aneurysmal degeneration particularly of the left common iliac artery. This will be performed with contrast to see if the false lumen has completely thrombosed. If there is aneurysmal dilatation of the time he would be a candidate for an e ndovascular stent graft. However, doing this presently is not indicated and we discussed this also. #2. Patient wants to return to work. I do not feel that his job with this type of dissection precludes this as long as he continues to monitor his blood pressure which he is checking twice daily at home. This is critical and they are aware of this. #3. Experiencing some shortness of breath which may be related to the lisinopril is a common side effect. We will discuss this with Dr. Ríos to see if another medication would be appropriate. Over 45 minutes with patient and today. We will repeat CTA in 6 months. Arthur Melara MD This note was created using [employer] voice recognition software which may result in associate dean of women errors. CC: Dr. Carlyle Ríos * Carlene Metcalf - 11/08/2022 9:[address] [facility] Patient is here for a consult. Pt is currently taking no meds that would impact our treatment plan. BP 128/79 (BP Location: Right arm, Patient Position: Chair, Cuff Size: Adult Regular) Pulse 57 The provider has been notified that the patient has no concerns. Questions patient would like addressed today are: N/A. Refills are needed: N/A Has homecare services and agency name: Karyn Metcalf MA documented in this encounter Plan of Treatment Scheduled Orders Name Type Priority Associated Diagnoses Orde r Schedule CTA Abdomen Pelvis with Contrast Imaging Routine Aortic dissection, abdominal (H) Expected: 05/11/2023 (Approximate), Expires: 11/08/2023 documented as of this encounter Visit Diagnoses Diagnosis Aortic dissection, abdominal (H)- Primary Dissection of aorta, abdominal documented in this encounter Care Teams Senior Dynamics Crm Developer Relationship Specialty Start Date End Date No Ref-Primary, Physician PCP - General 11/02/22 documented as of this encounter
--- OUTSIDE RECORDS SUMMARY | 2023-06-25 11:22 | XMS_ITS | Continuity of Care Document ---
Author Name Unknown Organization [facility] Address [address] [place] [address] Phone Care Team Providers Care Relief Man Name Role Phone Unavailable Unavailable Unavailable Procedures Procedure Date Office/outpatient visit,[facility] [place] exam of total spine Advance Directives Directive Yes / No Effective Date File Name No Information Encounters Encounter Description Practice Location Reason(s) For Visit Diagnoses Date Provider Providers Copied on Encounter [facility] [place], [address] [place] [address], [address], tel:[phone] [employer] No Information 0 No Information Office/outpat ient visit,[place] [facility], [address] [place] [address], [place], [address], tel:[phone] [employer] No Information 0 Jaiden Kinney. [facility], [address], [address], [place], [place], [id number], . tel:[phone] Referring Provider: Jaxon Somers, [facility] [address] [place] [address], [address]. tel:[phone] Family History Family Member Type Diagnosis Age At Onset No Information Payers Payer name Insurance type Covered republican ID Authorharjeeta deyanirabruno(s) [facility] [id number] BL [id number] Social History Type Description Quantity Date Captured Comments Sex Male Smoking Status No Information Chief Complaint And Reason For Visit No Information Reason For Referral Reason For Referral No Information History Of Present Illness Encounter Date Complaint History Of Prese nt Illness No Information Functional Status Date Functional Assessmen t No Information Instructions Date Instruction Additional Infor mation No Information Assessments Type Assessment Date No Information Patient Care Teams Name Effective Dates (start - stop) Status Members No Information
== END 2023-06-25 11:18 | disposition home or self-care (01) ==
LOC: LKVREF 11:18
PROVIDERS: PCP Family Medicine; Visit Provider Family Medicine
DX: Z12.5 Encounter for screening for malignant neoplasm of prostate (principal)
CPT/HCPCS: G0103

== ENCOUNTER 2023-06-28 10:27 | Day surgery (SDC) | payer OTHER, SELFPAY ==
[2023-06-28] VITALS (15 sets, daily range): BP systolic 131–153; BP diastolic 75–98; PULSE 51–66; RESP 14–16; TEMP 36.3–36.9; O2SAT 93–96; BMI 33.9
[2023-06-28] MEDS: LACTATED RINGERS 1000 ML 1,000 ML 100 ML IV (11:00)
[2023-06-28] MEDS: SODIUM CHLORIDE 0.9 % (FLUSH) 10 ML SYRINGE IVF (11:00)
--- NOTE | 2023-06-28 13:33 | W.ANESCHARGE ---
Anesthesia Charges Start Date/Time Anesthesia Start Date: 06/28/23 Anesthesia Start Time: 13:33 Stop Date/Time Anesthesia Stop Date: 06/28/23 Anesthesia Stop Time: 14:01
[2023-06-28] MEDS: BUPIVACAINE 0.25 %/EPI 1:200K 30 ml INJECTION (13:44)
[2023-06-28] MEDS: OXYMETAZOLINE (AFRIN) SOAK 1 EACH TOPICAL (13:44)
[2023-06-28] MEDS: BACITRACIN OINTMENT BULK TUBE 1 APPLIC TOPICAL (13:47)
--- NOTE | 2023-06-28 13:55 | W.PM.ENTPROC ---
Procedure Note Date of procedure: 06/28/23 Procedure: Preoperative diagnosis right nasal vestibular mass Postoperative diagnosis same Procedure excision right nasal vestibular mass Under general trach anesthesia patient was prepped draped usual fashion. The area surrounding the lesion was injected with a total of 1.5 mL of Marcaine with adrenaline. The lesion was then excised with a needlepoint cautery. There was minimal bleeding. The specimen was sent to pathology. Appearance was consistent with a pyogenic granuloma which is consistent with his history of trauma to that area. A cotton ball coated in Bactroban was placed over in the area of the excision. The patient procedure well was taken recovery in satisfactory condition. Blood loss less than 5 mL. Surgeon: Modesto Carranza MD
--- NOTE | 2023-06-28 14:01 | W.ANESCHARGE ---
Anesthesia Charges Start Date/Time Anesthesia Start Date: 06/28/23 Anesthesia Start Time: 13:33 Stop Date/Time Anesthesia Stop Date: 06/28/23 Anesthesia Stop Time: 14:01
[2023-06-28] MEDS: fentaNYL 100 MCG/2 ML inj 50 MCG IVP (14:29)
== END 2023-06-28 15:30 | disposition home or self-care (01) ==
PROVIDERS: PCP Family Medicine; Visit Provider Otolaryngology
PROC: (CPT 30117; principal; 2023-06-28 12:00)
DX: L98.0 Pyogenic granuloma (principal); J34.89 Other specified disorders of nose and nasal sinuses
CPT/HCPCS: 30117; 00160; 88305; J0330; J1100; J2250; J2405; J2704; J3010; J7120

== ENCOUNTER 2023-10-25 08:24 | Outpatient (CLI) | payer OTHER, SELFPAY ==
--- OUTSIDE RECORDS SUMMARY | 2023-10-28 15:51 | XMS_ITS | Referral Summary ---
Author Organization [facility] Address [address] [place] [address] Care Team Providers Care Correctional Agency Director Name Role Phone No Ref-Primary, Physician Primary Care Provider Arthur Melara MD Unavailable [phone] Allergies No known active allergies Medications Medication Sig Dispensed Refills Start Date End Date Status gabapentin (NEURONTIN) 100 MG capsule 10/18/2022 Active ibuprofen (ADVIL/MOTRIN) 800 MG tablet Take 800 mg by mouth Active labetalol (NORMODYNE) 200 MG tablet 11/04/2022 Active lisinopril (ZESTRIL) 40 MG tablet Take 1 tablet by mouth daily at 2 pm 11/04/2022 Active tadalafil (CIALIS) 20 MG tablet 10/31/2022 Active tamsulosin (FLOMAX) 0.4 MG capsule Take 0.4 mg by mouth daily 06/10/2022 Active amLODIPine (NORVASC) 10 MG tablet Take 10 mg by mouth daily Active Social History Tobacco Use Types Packs/Day [...] - Plan of Treatment Not on file Procedures Procedure Name Priority Date/Time Associated Diagnosis Comments GLUCOSE (EXTERNAL RESULT) Routine 10/09/2022 3:19 AM CDT from Last 3 Months or Most Recently Relevant to Health Maintenance Results * (ABNORMAL) Glucose (External Result) (10/09/2022 3:19 AM CDT) Glucose (External) 129(H) 70 - 99 mg/dL [facility] Blood 10/09/2022 3:19 AM CDT Narrative [facility] - 10/09/2022 3:19 AM CDT See Care Everywhere-[facility] Provider Outside LAB - HIM EXTERNAL R ESULT [facility] [address] [phone] from Last 3 Months or Most Recently Relevant to Health Maintenance Care Teams Correctional Agency Director Relationship Specialty Start Date End Date No Ref-Primary, Physician PCP - General 11/02/22 Arthur Melara MD [address] [place] [address] Assigned Heart and Vascular Provider 11/17/22
--- OUTSIDE RECORDS SUMMARY | 2023-10-28 15:51 | XMS_ITS | Continuity of Care Document ---
Author Organization [facility] Address [address] [place] [address] [address] [place] [address] Phone Care Team Providers Care Medical Coding Manager Name Role Phone Unavailable Unavailable Unavailable Procedures Procedure Date Office[facility]outpatient [facility] [place] exam of total spine Advance Directives Directive Yes / No Effective Date File Name No Information Encounters Encounter Description Practice Location Reason(s) For Visit Diagnoses Date Provider Providers Copied on Encounter [facility] [place], [address] [place] [address], [place], [address], tel:[phone] [place] [address] No Information 0 No Information Office/outpat ient visit,[facility], [address] [place] [address], [place], [address], tel:[phone] [address] No Information 0 Jaiden Nirmal. [facility], [address], [address], [place], [place], [id number], [place]. tel:[phone] Referring Provider: Jaxon Somers, [facility] [address] [place] [address], [address]. tel:[phone] Family History Family Member Type Diagnosis Age At Onset No Information Payers Payer name Insurance type Covered republican ID Andria barraza(s) [facility] [id number] Social History Type Description Quantity Date Captured [...]
--- OUTSIDE RECORDS SUMMARY | 2023-10-28 15:51 | XMS_ITS | Data Portability ---
Author Organization [place] [facility] [place] [facility] Address [address] [facility], [facility] [address] [place] [address] Assessment No assessment recorded. Plan of Treatment Reminders Order Date Submit Date Provider Last Modified By Organization Details Last Modified Time Details Appointments None recorded. Lab urinalysis , dipstick 2020 021 [email or web address] Not available 16:28:45 Referral None recorded. Procedures None recorded. Surgeries None recorded. Imaging XR, kidney + ureter + bladder 2020 021 [email or web address] Not available 09:33:30 XR, kidney + ureter + bladder 2020 021 [email or web address] Not available 09:33:30 Medication Orders oxycodone 5 mg tablet 2020 [id number], [address] [place], [place], [id number], 11:40:30 Patient TargetsNo targets recorded. Patient InstructionsNo instructions recorded. Reason for Referral None Reported. Results Created Date Observation Date Name Description Value Unit Range Abnormal Flag LastModifiedBy Organization Detail LastModifiedTime 11/01/2020 urina lysis , dipst ick Color-Status Yellow Not Available [facility] [address], [place], [address], 11/01/2020 16:28:06 11/01/2020 urina lysis , dipst ick Clarity-Stat us Clear Not Available [facility] [address], [place], [address], 11/01/2020 16:28:06 11/01/2020 urina lysis , dipst ick pH-Status 6.0 Not Available [facility] [address], [place], [address], 11/01/2020 16:28:06 11/01/2020 urina lysis , dipst ick Blood-Status Small Not Available [facility] [address], [place], [address], 11/01/2020 16:28:06 11/27/19 21 11/25/2020 XR, kidne y + urete r + bladd er No observ ation record ed. [address], [address], 11/28/2020 09:36:41 Result Notes None recorded. Procedures Surgical History None recorded. Imaging Results Imaging Date Name Status LastModified by Organiz ation Details LastModified Time 11/25/2020 XR, kidney + ureter + bladder completed [address], [address], 11/28/2020 09:36:41 Procedure Notes None recorded. Medical Equipment None Reported. Allergies No known drug allergies Medications Name Sig Start Date Stop Date Status Note LastModified by Organization Details LastModified Time azithromycin 250 mg tablet 11/01 completed Not Available Not Available Not Available ibuprofen 800 mg tablet TAKE 1 TABLET BY MOUTH TWICE DAILY NEEDED FOR PAIN active Not Available Not Available No t Available oxycodone-ac etaminophen 5 mg-325 mg tablet 11/01 completed Not Available Not Available Not Available tamsulosin 0.4 mg capsule active Not Available Not Available Not Available losartan 100 mg tablet active Not Available Not Available No t Available tobramycin 0.3 %-dexamethas one 0.1 % eye drops,suspen hanane SHAKE LIQUID AND INSTILL 1 DROP IN LEFT EYE FOUR TIMES DAILY FOR 1 WEEK 11/25 completed Not Available Not Available Not Available oxycodone 5 mg tablet TAKE 1 TABLET BY MOUTH EVERY 4 TO 6 HOURS NEEDED 11/25 completed Not Available Not Available Not Available Vitals Date Recorded Body height Body mass index (BMI) Body weight Provider Name and Address Organization Details Last Updated DateTime 11/01/2020 182.88 cm 31.2 kg/m2 172416.25 g Talita Barahona [facility] 11/01/2020 16:25:30 Date Recorded Body height Body mass index (BMI) Body weight Provider Name and Address Organization Details Last Updated DateTime 11/25/2020 182.88 cm 31.2 kg/m2 531343.25 g Binta Teran [facility] 11/25/2020 10:59:47 Social History Question Answer Notes LastModified by Organizat ion Details LastModified Time Tobacco Smoking Status [facility] 11/01/2020 16:26:21 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 11/25/2020 kneubert Information not available 11/25/2020 Sex: Unknown Functional Status None recorded. Mental Status None recorded. Family History Relationship Description Onset Age of this Age Resolved Age Notes Mother Family history of Hypertension Medical History Condition Response Sexually Transmitted Infection N Diabetes N Other N Bleeding Disorder N High Blood Pressure Y Kidney Stones Y High Cholesterol N GERD/Acid Reflux N Heart Disease N Cancer N Depression N Lung Disease N Past Encounters Encounter ID Performer Location Encounter Start Date Encounter Closed Date Diagnosis/Indication Diagnosis SNOMED-CT Code [id number] MD [facility] [address] [facility] [address] [place] [address] 11/01/2020 16:14:24 11/02/2020 16:26:40 Kidney stone [id number] Ciro Pitts MD [facility] [address] [facility],[address] [place] [address] 11/25/2020 10:56:48 11/30/2020 09:33:30 Kidney stone [id number] Health Concerns Section Related Observation LastModified by Organization Detai ls LastModified Time None Recorded Concern Status LastModified by Organization Details LastModified Time None Recorded Advance Directives Directive None Recorded Payers Encounter Date Sequence Insurance Name Policy Number Policy Aaron Covered Member ID Aaron Member ID Guarantor Name 11/25/2020 1 [id number] [id number] Dov Alexander [id number] Dov Alexander Notes Date Note Type Note Provider Name and Address Organization Details Recorded Time 11/01/2020 text/html HPI Notes: New patient for stone pain x [address] Vaughn 10/25/[address] report from 10/25/20 in [place] showing 3.3 mm stone in left mid ureter, no other stones seen. He presented with L flank pain now radiating to LLQ and L groin. Takind 1/2 oxycodone tab TID with good control. On terminologist Flomax. No fevers. No prior stones. Ciro Pitts MD [address] [place] [address],[address], [address], [facility] 11/01/2020 17:20:24 11/25/2020 text/html HPI Notes: 11/01/20: New patient for stone pain x [address] Vaughn 10/25/[address] report from 10/25/20 in [place] showing 3.3 mm stone in left mid ureter, no other stones seen. He presented with L flank pain now radiating to LLQ and L groin. Takindg1/2 oxycodone tab TID with good control. On intermediate Flomax. No fevers. No prior stones. 11/25/20: No stone pain or other symptoms for the last several days. He has not visualized a stone passed in the urine but has not been straining. KUB today is negative for any stones. Ciro Pitts MD [address] [place] [address],[address], [place], [address], [facility] 11/25/2020 12:55:14
--- OUTSIDE RECORDS SUMMARY | 2023-10-28 15:51 | XMS_ITS | Clinical Summary ---
Author Organization [facility] Address [address] [place] [address] Care Team Providers Care Naphthalene Operator Name Role Phone No Ref-Primary, Physician Primary Care Provider Arthur Melara MD Unavailable [phone] Allergies No known active allergies Medications Medication [...] COLONOGRAPHY 1963 FIT 1963 FLEX SIG 1963 YEARLY PREVENTIVE VISIT 1963 sDNA (Cologuard) 1963 COLONOSCOPY 07/06/1973 COLORECTAL CANCER SCREENING 07/06/1973 HIV SCREENING 07/06/1978 IPV IMMUNIZATION (3 of 3 - 4-dose series) 12/14/1980 06/16/1980, 05/19/1980 HEPATITIS C SCREENING 07/06/1981 LIPID 2003 ZOSTER IMMUNIZATION (1 of 2) 07/06/2013 COVID-19 Vaccine (1 - 2022-24 season) 2023 PHQ-2 (once per calendar year) 2023 RSV VACCINE ( & 60+) (1 - 1-dose 60+ series) 2023 INFLUENZA VACCINE (Season Ended) 2024 03/03/2022, 04/19/2016, 05/01/2013, Additional history exists DTAP/TDAP/TD IMMUNIZATION (2 - Td or Tdap) 09/22/2025 09/23/2015 GLUCOSE 10/09/2025 10/09/2022 HPV IMMUNIZATION Aged Out No longer e [...] on patient's age to complete this topic Procedures Procedure Name Priority Date/Time Associated Diagnosis Comments GLUCOSE (EXTERNAL RESULT) Routine 10/09/2022 3:19 AM CDT from Last 3 Months or Most Recently Relevant to Health Maintenance Results * (ABNORMAL) Glucose (External Result) (10/09/2022 3:19 AM CDT) Glucose (External) 129(H) 70 - 99 mg/dL [facility] Blood 10/09/2022 3:19 AM CDT Narrative [facility] - 10/09/2022 3:19 AM CDT See Care Everywhere-[facility] Provider Outside LAB - HIM EXTERNAL R ESULT [facility] [address] [place] [address], [facility] [phone] from Last 3 Months or Most Recently Relevant to Health Maintenance Care Teams Naphthalene Operator Relationship Specialty Start Date End Date No Ref-Primary, Physician PCP - General 11/02/22 Arthur Melara MD [address] [place] [address] Assigned Heart and Vascular Provider 11/17/22
--- OUTSIDE RECORDS SUMMARY | 2023-10-28 15:51 | XMS_ITS | Clinical Summary ---
Author Organization [employer] [facility] Address [place], [place] [address] Care Team Providers Care Supervisor [employer] Name Role Phone Ketty Reddy MD Primary Care Provider Allergies No known active allergies Medications Medication Sig Dispensed Refills Start Date End Date Status traMADol (ULTRAM) 50 mg tablet Take 50 mg by mouth every 6 hours if needed for Pain. Active tamsulosin (FLOMAX) 0.4 mg capsule Take 0.4 mg by mouth once daily after a meal. Active ibuprofen (ADVIL; MOTRIN) 800 mg tablet Take 800 mg by mouth 2 times daily if needed. Active Social History Tobacco Use Types Packs/Day [...] Comments Blood Pressure 108/70 06/07/2014 9:39 AM ATTENDANT COIN OPERATED LAUNDRY Pulse 60 06/07/2014 9:39 AM ATTENDANT COIN OPERATED LAUNDRY Temperature 36.6 ??C (97.8 ??F) 11/28/2016 1 1:00 AM CDT Respiratory Rate 16 06/07/2014 9:39 AM ATTENDANT COIN OPERATED LAUNDRY Oxygen Saturation 98% 06/07/2014 9:39 AM ATTENDANT COIN OPERATED LAUNDRY Inhaled Oxygen Concentration - - Weight 103.3 kg (227 lb 12.8 oz) 2016 11:00 AM CDT Height 182.9 cm (6') 06/07/2014 7:55 AM ATTENDANT COIN OPERATED LAUNDRY Body Mass Index 30.9 06/07/2014 7:55 AM ATTENDANT COIN OPERATED LAUNDRY Plan of Treatment Health Maintenance Due Date Last Done Comments Tdap 07/06/1974 Depression screening for age 12+ 1975 HIV for age 15-65 07/06/1978 BMI (ht and wt on same day) for age 18+ 07/06/1981 Hepatitis C screening for ag e 18-79 07/06/1981 Tetanus booster 1983 Colonoscopy through age 75 07/06/2008 Lipids for age 45-75 07/06/2008 Zoster (shingles) series for age 50+ (1 of 2) 07/06/2013 COVID-19 vaccine series ( - 2022-24 season) 2023 Influenza for age 50-64 01/05/2024 Pneumococcal series for age 6-64 Aged Out No longer eligible based on patient's age to complete this topic Advance Directives * Full Code (Latest Code Status on File) Date Activated Date Inactivated Comments 06/07/2014 7:34 AM 06/07/2014 11:43 AM Care Teams Supervisor [employer] Relationship Specialty Start Date End Date Ketty Reddy MD PCP - General Family Practice 06/07/14
== END 2023-10-25 08:25 | disposition home or self-care (01) ==
LOC: NFLDREF 10-28 15:50
PROVIDERS: PCP Family Medicine; Referring Provider Family Medicine; Visit Provider Family Medicine
DX: I10 Essential (primary) hypertension (principal)
CPT/HCPCS: 80048

== ENCOUNTER 2024-03-27 11:04 | Outpatient (CLI) | payer OTHER, SELFPAY ==
--- OUTSIDE RECORDS SUMMARY | 2024-03-27 11:07 | XMS_ITS | Continuity of Care Document ---
Author Organization [facility] Address [address] [place] [address] [address] [place] [address] Phone Care Team Providers Care Editorial Cartoonist Name Role Phone Unavailable Unavailable Unavailable Procedures Procedure Date Office/outpatient visit,[facility] [place] X-ray exam of total spine Advance Directives Directive Yes / No Effective Date File Name No Information Encounters Encounter Description Practice Location Reason(s) For Visit Diagnoses Date Provider Providers Copied on Encounter [facility], [address] [place] [address], [place], [address], tel:[phone] [facility] No Information 0 No Information Office/outpat ient visit,[facility] [facility], [address] [place] [address], [place], [address], tel:[phone] [facility] No Information 0 Jaiden Nirmal. [facility], [address], [address], [place], [place], [id number], [place]. tel:[phone] Referring Provider: Jaxon Somers, [facility] [address] [place] [address], [address]. tel:[phone] Family History Family Member Type Diagnosis Age At Onset No Information Payers Payer name Insurance type Covered alliance party ID Andria barraza(s) [facility] [id number] Social History Type Description Quantity Date Captured [...]
--- OUTSIDE RECORDS SUMMARY | 2024-03-27 11:07 | XMS_ITS | Data Portability ---
Author Organization [facility] Address [address] [facility] [place] [address] Assessment No assessment recorded. Plan of Treatment [...] Medication Orders oxycodone 5 mg tablet 2020 [id number], [address] [place], [place], [id number], 11:40:30 Patient TargetsNo targets recorded. Patient InstructionsNo instructions recorded. Reason for Referral None Reported. Results Created Date Observation Date Name Description Value Unit Range Abnormal Flag Note LastModifiedBy Organization Detail LastModifiedTime 11/01/2020 urina lysis , dipst ick Color-Status Yellow Not Available [facility] [address], [place], [address], 11/01/2020 16:28:06 11/01/2020 urina lysis , dipst ick Clarity-Stat us Clear Not Available [facility] [address], [place], [address], 11/01/2020 16:28:06 11/01/2020 urina lysis , dipst ick pH-Status 6.0 Not Available [facility] [address], [place], [address], 11/01/2020 16:28:06 11/01/2020 urina lysis , dipst ick Blood-Status Small Not Available [facility] [address], [place], [address], 11/01/2020 16:28:06 11/27/19 21 11/25/2020 XR, kidne y + urete r + bladd er No observ ation record ed. [address], [address], 11/28/2020 09:36:41 Result Notes None recorded. Procedures Surgical History None recorded. Imaging Results Imaging Date Name Status LastModified by Organiz ation Details LastModified Time 11/25/2020 XR, kidney + ureter + bladder completed [address], [address], 11/28/2020 09:36:41 Procedure Notes None recorded. 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 11/25/2020 [email or web address] Information not available 11/25/2020 Sex: Unknown Functional Status None recorded. Mental Status None recorded. Family History Relationship Description Onset Age of this Age Resolved Age Notes LastModified by Organization Details LastModified Time Mother Family history of Hypertension [email or web address] Not available 16:26:11 Medical History Condition Response Sexually Transmitted Infection N Diabetes N Other N Bleeding Disorder N High Blood Pressure Y Kidney Stones Y High Cholesterol N GERD/Acid Reflux N Heart Disease N Cancer N Lung Disease N Depression N Past Encounters Encounter ID Performer Location Encounter Start Date Encounter Closed Date Diagnosis/Indication Diagnosis SNOMED-CT Code Diagnosis ICD10 Code [id number] MD NICKI [facility] [address] [place] [address]. [place] [id number] 11/01/2020 16:14:24 11/02/2020 16:26:40 Kidney stone 18834171 N20.0 [id number] Ciro Pitts MD [facility] [address] [facility] [place] [address] 11/25/2020 10:56:48 11/30/2020 09:33:30 Kidney stone 72225241 N20.0 Health Concerns Section Related Observation LastModified by Organization Detai ls LastModified Time None Recorded Concern Status LastModified by Organization Details LastModified Time None Recorded Advance Directives Directive None Recorded Payers Encounter Date Sequence Insurance Name Policy Number Policy Aaron Covered Member ID Aaron Member ID Guarantor Name 11/25/2020 1 [employer] [id number] Dov Alexander [id number] Dov Alexander Notes Date Note Type Note Provider Name and Address Organization Details Recorded Time 11/01/2020 text/html New patient for stone pain x [address] Vaughn 10/25/[address] report from 10/25/20 in [place] showing 3.3 mm stone in left mid ureter, no other stones seen. He presented with L flank pain now radiating to LLQ and L groin. Takind 1/2 oxycodone tab TID with good control. On enterprise manager Flomax. No fevers. No prior stones. Ciro Pitts MD [address] [place] [address],[address], [address], [facility] 11/01/2020 17:20:24 11/25/2020 text/html 11/01/20: New patient for stone pain x [address] Vaughn 10/25/[address] report from 10/25/20 in [place] showing 3.3 mm stone in left mid ureter, no other stones seen. He presented with L flank pain now radiating to LLQ and L groin. Takindg1/2 oxycodone tab TID with good control. On halfway Flomax. No fevers. No prior stones. 11/25/20: No stone pain or other symptoms for the last several days. He has not visualized a stone passed in the urine but has not been straining. KUB today is negative for any stones. Ciro Pitts MD [address] [place] [address],[address], [place], [address], [facility] 11/25/2020 12:55:14
--- OUTSIDE RECORDS SUMMARY | 2024-03-27 11:07 | XMS_ITS | Referral Summary ---
Author Organization [facility] Address [address] [place] [address] Care Team Providers Care Director Of Revenue Cycle Management Name Role Phone No Ref-Primary, Physician Primary Care Provider Arthur Melara MD Unavailable [phone] Allergies No known active allergies Medications gabapentin (NEURONTIN) 100 MG capsule 10/18/2022 Active labetalol (NORMODYNE) 200 MG tablet 11/04/2022 [...] Types Packs/Day Years Used Date Smoking Tobacco: Former Cigarettes Smokeless Tobacco: Never Tobacco Cessation:Counseling Given: Not Answered Alcohol Use Standard Drinks/Week Comments Never 0 (1 standard drink = 0.6 oz pur e alcohol) PHQ-2 Answer Date Recorded PHQ-2 Score 0 11/19/2023 Adolescent Education Answer Date Record ed Getting School Help Needed Not on file 01/26 Sex and Gender Information Value Date Recorded Sex Assigned at Not on file Legal Sex Male 2:44 PM CDT Gender Identity Not on file Sexual Orientation Not on file Last Filed Vital Signs Vital Sign Reading Time Taken Comments Blood Pressure 134/82 11/19/2023 9:28 AM CDT Pulse 52 11/19/2023 9:28 AM CDT Temperature - - Respiratory Rate - - Oxygen Saturation - - Inhaled Oxygen Concentration - - Weight - - Height - - Body Mass Index - - Plan of Treatment Upcoming Encounters Date Type Department Care Team (Late st Contact Info) Description 05/18/2024 1:20 PM [address] Appoint[address] [facility] [address] [phone] Arthur Melara MD [address] [place] [address] 05/21/2024 1:30 PM FOAM CASTER Office Visit [facility] [place] [address] [place] [phone] Arthur Melara MD [address] [place] [id number] Procedures Procedure Name Priority Date/Time Associated Diagnosis Comments GLUCOSE (EXTERNAL RESULT) Routine 10/09/2022 3:19 AM CDT from Last 3 Months or Most Recently Relevant to Health Maintenance Results * (ABNORMAL) Glucose (External Result) (10/09/2022 3:19 AM CDT) Glucose (External) 129(H) 70 - 99 mg/dL [facility] Blood 10/09/2022 3:19 AM CDT Narrative [facility] - 10/09/2022 3:19 AM CDT See Care Everywhere-[facility] us Provider Outside LAB - HIM EXTERNAL RESULT Final Result [facility] [address] [place] [address], [facility] [phone] from Last 3 Months or Most Recently Relevant to Health Maintenance Insurance [employer]ICE MED[employer] Care Teams Director Of Revenue Cycle Management Relationship Specialty Start Date End Date No Ref-Primary, Physician PCP - General 11/02/22 Arthur Melara MD [address] [place] [address] Assigned Heart and Vascular Provider 11/17/22
--- OUTSIDE RECORDS SUMMARY | 2024-03-27 11:07 | XMS_ITS | Clinical Summary ---
Author Organization [facility] Address [address] [place] [address] Care Team Providers Care Hospital Administrator Name Role Phone No Ref-Primary, Physician Primary Care Provider Arthur Melara MD Unavailable [phone] Allergies No known active allergies Medications gabapentin [...] st Contact Info) Description 05/18/2024 1:20 PM DATABASE MARKETING ANALYST Appointment [facility] [address] [place] [phone] Arthur Melara MD [address] [place] [address] 05/21/2024 1:30 PM DATABASE MARKETING ANALYST Office Visit [facility] [place] [address] [place] [phone] Arthur Melara MD [address] [place] [phone] Health Maintenance Due Date Last Done Comments ADVANCE CARE PLANNING 1965 ANNUAL REVIEW OF HM ORDERS 1963 CT COLONOGRAPHY 1963 FIT 1965 FLEX SIG 1965 YEARLY PREVENTIVE VISIT 1965 sDNA (Cologuard) 1965 COLONOSCOPY 07/06/1973 COLORECTAL CANCER SCREENING 07/06/1973 HIV SCREENING 07/06/1978 HEPATITIS C SCREENING 07/06/1981 LIPID 2003 ZOSTER IMMUNIZATION (1 of 2) 07/06/2013 LUNG CANCER SCREENING 10/05/2023 10/04/2022 COVID-19 Vaccine (2023- season) 2024 INFLUENZA VACCINE (#1) 2024 , 04/19/2016, 05/01/2013, Additional history exists DTAP/TDAP/TD IMMUNIZATION (2 - Td or Tdap) 09/22/2025 09/23/2015 GLUCOSE 10/09/2025 10/09/2022 RSV VACCINE (1 - 1-dose 75+ series) 07/06/2038 PHQ-2 (once per calendar year) Completed 11/19/2023 HPV IMMUNIZATION Aged Out No longer e [...] Glucose (External) 129(H) 70 - 99 mg/dL [facility] Blood 10/09/2022 3:1 9 AM CDT Narrative [facility] - 10/09/2022 3:19 AM CDT See Care Everywhere-[facility] and [facility] us Provider Outside LAB - HIM EXTERNAL RESULT Final Result [facility] [address] [address], [facility] [phone] from Last 3 Months or Most Recently Relevant to Health Maintenance Insurance [employer] CHOICE MED[employer] Care Teams Hospital Administrator Relationship Specialty Start Date End Date No Ref-Primary, Physician PCP - General 11/02/22 Arthur Melara MD [address] [place] [address] Assigned Heart and Vascular Provider 11/17/22
--- OUTSIDE RECORDS SUMMARY | 2024-03-27 11:07 | XMS_ITS | Clinical Summary ---
Author Organization [employer] [facility] Address [place], [place] [address] Care Team Providers Care Out Patient Therapist Name Role Phone Ketty Reddy MD Primary [...] Comments Blood Pressure 108/70 06/07/2014 9:39 AM APPLICATION RELEASE MANAGER Pulse 60 06/07/2014 9:39 AM APPLICATION RELEASE MANAGER Temperature 36.6 C (97.8 F) 11/28/2016 11:00 AM CDT Respiratory Rate 16 06/07/2014 9:39 AM APPLICATION RELEASE MANAGER Oxygen Saturation 98% 06/07/2014 9:39 AM APPLICATION RELEASE MANAGER Inhaled Oxygen Concentration - - Weight 103.3 kg (227 lb 12.8 oz) 2016 11:00 AM CDT Height 182.9 cm (6') 06/07/2014 7:55 AM APPLICATION RELEASE MANAGER Body Mass Index 30.9 06/07/2014 7:55 AM APPLICATION RELEASE MANAGER Plan of Treatment Health Maintenance Due Date [...] 2) 07/06/2013 COVID-19 vaccine series ( - 2023-25 season) 2024 Influenza for age 50-64 01/05/2024 Pneumococcal series for age 6-64 Aged Out No longer eligible based on patient's age to complete this topic Advance Directives * Full Code (Latest Code Status on File) Date Activated Date Inactivated Comments 06/07/2014 7:34 AM 06/07/2014 11:43 AM Care Teams Out Patient Therapist Relationship Specialty Start Date End Date Ketty Reddy MD PCP - General Family Practice 06/07/14
== END 2024-03-27 11:05 | disposition home or self-care (01) ==
PROVIDERS: PCP Family Medicine; Visit Provider Family Medicine
DX: Z13.6 Encounter for screening for cardiovascular disorders (principal)
CPT/HCPCS: 80061

== ENCOUNTER 2025-01-22 09:50 | Outpatient (CLI) | payer OTHER, SELFPAY | END 2025-01-22 09:51 | disposition home or self-care (01) | LOC: NFLDREF 01-27 14:48 | PROVIDERS: PCP Family Medicine; Referring Provider Family Medicine; Visit Provider Family Medicine | DX: I10 Essential (primary) hypertension (principal); Z12.5 Encounter for screening for malignant neoplasm of prostate; Z13.6 Encounter for screening for cardiovascular disorders | CPT/HCPCS: 80048; 80061; G0103 ==